=== PATIENT | male | born 1960 | race African-American/Black ===

== ENCOUNTER 2020-10-13 12:47 | Inpatient (IN) ==
[2020-10-13] MEDS ORDERED: ACETAMINOPHEN 500 MG TAB PO STA (13:05)
[2020-10-13] MEDS ORDERED: NITROGLYCERIN 2% OINTMENT 30GM TUBE EXT STA (13:05)
[2020-10-13 13:12] LABS: Basophils # (auto) 0.01 K/uL (0-0.2); Basophils % (auto) 0.2 %; Eosinophils # (auto) 0.43 K/uL (0-0.5); Eosinophils % (auto) 8.3 %; Hematocrit (blood only) 36.4 % (42-52); Hemoglobin 13.2 g/dL (14.0-18.0); Lymphocytes # (auto) 2.13 K/uL (1.2-3.4); Mean Corpuscular Hemoglobin 30.1 pg (25-34); Mean Corpuscular Hgb Conc 36.3 g/dL (32-36); Mean Corpuscular Volume 82.9 fL (80-100); Mean Platelet Volume 10.3 fL (7.4-10.4); Monocytes # (auto) 0.56 K/uL (0.11-0.59); Monocytes % (auto) 10.8 %; Neutrophils # (auto) 2.06 K/uL (1.4-6.5); Neutrophils % (auto) 39.7 %; Platelet Count 229 K/uL (130-400); RDW Coefficient of Variation 13.1 % (11.5-14.5); RDW Standard Deviation 39.4 fL (36.4-46.3); Red Blood Count 4.39 M/uL (4.7-6.1); White Blood Count 5.19 K/uL (4.8-10.8)
--- NOTE | 2020-10-13 13:21 | Emergency Department Note ---
Impression & Plan Precordial chest pain, Elevated troponin, History of coronary artery disease ED Provider Note NAME: NITO [id number] ALIYA AGE: 60 SEX: M : 1960 ARRIVES VIA: Ambulance INFORMANT: [Patient] ED PROVIDER(S): [Leroy Velez MD] CHIEF COMPLAINT: Chest pain HISTORY OF PRESENT ILLNESS: The patient is a 60-year-old male presents to the ER with central chest pain since last night. Last night, he had pain and took some nitroglycerin. The pain went away. This morning around 5 hours ago, the pain returned. He took 2 nitroglycerin. He was given 1 nitroglycerin in route by EMS as well as 4 baby aspirin. He states the pain is now gone. The pain had been an 8/10. Patient was feeling radiation of pain to the left shoulder. He was short of breath, nauseated and sweaty. He states he has a history of coronary disease. There has been no cough or cold or congestion. No trauma. No fever or chills. Patient is an inmate [facility]. REVIEW OF SYSTEMS: See HPI for pertinent positives and negatives. A total of ten systems were reviewed and were otherwise negative. PMHx/PSHx: See Below SOCIAL HISTORY: See Below. PHYSICAL EXAM: GENERAL: Patient is in no acute distress. HEENT: No acute trauma, normocephalic atraumatic, mucous membranes moist, no nasal congestion, no scleral icterus. NECK: No stridor, no adenopathy, no meningismus, trachea is midline. LUNGS: Clear to auscultation bilaterally, no wheeze, no rhonchi, breath sounds equal. Chest: Nontender chest wall. HEART: Without murmurs gallops or rubs, regular rate and rhythm. ABDOMEN: Soft, nontender, bowel sounds positive, no hernias, no peritonitis. EXTREMITIES: No cyanosis or edema, full range of motion of all the joints without pain or difficulty, no signs for acute trauma. NEUROLOGIC: Oriented x 3, no acute motor or sensory deficits, no focal weakness. SKIN: No rash, no jaundice, no diaphoresis. DIFFERENTIAL DIAGNOSIS: Cardiac ischemia, aortic dissection, pulmonary embolism, pneumothorax, pneumonia, pericarditis, myocarditis, esophageal rupture, GERD, cholecystitis, pancreatitis, musculoskeletal, as well as other pathologies. EMERGENCY DEPARTMENT COURSE/PROCEDURES: ECG: Indication was chest pain. The ECG shows a sinus bradycardia with a rate of 41. There is no ST elevation, no PVCs. The QTc is 380. Compared to an ECG from 07 July 2011, the heart rate has decreased. Continuous Cardiac Monitoring: An order was placed for continuous cardiac monitoring. The monitor shows a rate of 54 with sinus bradycardia. MEDICAL DECISION MAKING: There is no leukocytosis or concerning anemia. There is a normal platelet count. No significant electrolyte abnormality or kidney failure. There is no worrisome liver enzyme elevation. Troponin is somewhat elevated at 0.183. No evidence for pancreatitis. ECG does not show any evidence for acute DC. No ischemic changes by EKG. A chest film was performed, there was no mediastinal widening, pneumonia or pneumothorax. On exam, patient denied any chest pain while in the ED, it seems his discomfort has been relieved with nitroglycerin. The patient had already received oral aspirin. He was given Nitropaste, 1 inch. He received oral Tylenol for a headache from his nitroglycerin use. The patient presents with chest discomfort. His chest pain does appear cardiac in nature. He has a history of coronary disease. His symptoms have resolved with nitroglycerin and aspirin. He does have an elevated troponin, hospitalization is warranted. I did speak with cardiology, they recommended the hospital stay, no need for emergent cardiac catheterization. I spoke to the patient and the guards at bedside. I spoke with case management. The on-call hospitalist was consulted. Past Med/Surg History Medical History Angina at rest Bradycardia Constipation HLD (hyperlipidemia) HTN (hypertension) Hydrocele Mood disorder Surgical History (Updated 10/13/20 @ 16:05 by MILTON Watters) H/O removal of cyst Family History (Updated 10/13/20 @ 16:08 by MILTON Watters) Father COPD (chronic obstructive pulmonary disease) Coronary heart disease Mother Coronary heart disease heart attack, pacemkaer Hypertension Diabetes Myocardial infarction Brother Coronary heart disease heart attack, pacemaker Hypertension Kidney disease Dialysis Diabetes Myocardial infarction Social History Smoking Status: Never smoker Second Hand Exposure: No; Do You Dip or Chew Tobacco: No; Tobacco Cessation Education Requested by Patient: No Hx Alcohol Use: No Hx Substance Use: No Communication Ability: Effective Frozen Food Department Manager Required: No Beliefs That Will Affect Care: None Current Living Situation: Other Other Information That Helps Us Care for You: No Feels Safe at Home: Yes Assistive Devices: Denture - Upper, Denture - Lower and Glasses Allergies Allergies Allergy/AdvReac Type Severity Reaction Status Date / Time lisinopril AdvReac Mild Unknown Unverified 10/13/20 14:44 losartan [From Cozaar] AdvReac Mild Unknown Unverified 10/13/20 14:44 Home Meds Home Medications Medication Instructions Recorded Confirmed aspirin [Aspir-81] 81 mg PO QAM 10/13/20 10/13/20 atorvastatin 20 mg PO HS 10/13/20 10/13/20 bisacodyl 10 mg PO HS 10/13/20 10/13/20 celecoxib 100 mg PO BID PRN 10/13/20 10/13/20 chlorthalidone 25 mg PO QAM 10/13/20 10/13/20 docusate sodium 250 mg PO HS 10/13/20 10/13/20 hydralazine 50 mg PO QID 10/13/20 10/13/20 isosorbide mononitrate 60 mg PO QAM 10/13/20 10/13/20 mirtazapine 30 mg PO HS 10/13/20 10/13/20 sertraline 50 mg PO QAM 10/13/20 10/13/20 sertraline 100 mg PO QAM 10/13/20 10/13/20 valsartan 160 mg PO BID 10/13/20 10/13/20 Results & Data (ED) Vital Signs Vital Signs - 24 hr 10/13/20 12:55 10/13/20 12:56 10/13/20 13:00 Temperature 36.8 C Temperature Source Oral Pulse Rate 45 L 46 L 65 Pulse Rate from SpO2 Sensor 46 L 45 L 64 Respiratory Rate 14 16 15 Blood Pressure 166/97 H 170/97 H 170/97 H Blood Pressure Mean 120 121 121 Pulse Oximetry 97 97 96 Oxygen Delivery Method Room Air Sepsis Recent Fever Within 48 Hours No Sepsis New/Unexplained Change in Mental Status No Sepsis Action Taken by Nursing No Action Required 10/13/20 13:01 10/13/20 13:10 10/13/20 13:30 Temperature Temperature Source Pulse Rate 46 L 46 L Pulse Rate from SpO2 Sensor 47 L 43 L Respiratory Rate 15 17 Blood Pressure Blood Pressure Mean Pulse Oximetry 97 98 96 Oxygen Delivery Method Sepsis Recent Fever Within 48 Hours Sepsis New/Unexplained Change in Mental Status Sepsis Action Taken by Nursing 10/13/20 13:31 10/13/20 13:32 10/13/20 14:00 Temperature Temperature Source Pulse Rate 42 L 47 L 43 L Pulse Rate from SpO2 Sensor 48 L 46 L 43 L Respiratory Rate 15 14 16 Blood Pressure 160/86 H Blood Pressure Mean 110 Pulse Oximetry 96 96 96 Oxygen Delivery Method Sepsis Recent Fever Within 48 Hours Sepsis New/Unexplained Change in Mental Status Sepsis Action Taken by Nursing 10/13/20 14:01 10/13/20 14:30 10/13/20 14:31 Temperature Temperature Source Pulse Rate 40 L 55 L 40 L Pulse Rate from SpO2 Sensor 40 L 57 L 40 L Respiratory Rate 15 15 13 Blood Pressure 157/90 H 155/81 H Blood Pressure Mean 112 105 Pulse Oximetry 96 96 96 Oxygen Delivery Method Sepsis Recent Fever Within 48 Hours Sepsis New/Unexplained Change in Mental Status Sepsis Action Taken by Nursing 10/13/20 14:32 10/13/20 15:00 10/13/20 15:01 Temperature Temperature Source Pulse Rate 59 L 44 L 63 Pulse Rate from SpO2 Sensor 58 L 43 L 52 L Respiratory Rate 16 18 19 Blood Pressure 143/79 H Blood Pressure Mean 100 Pulse Oximetry 96 96 95 Oxygen Delivery Method Sepsis Recent Fever Within 48 Hours Sepsis New/Unexplained Change in Mental Status Sepsis Action Taken by [facility] Medications Current Medication List: was personally reviewed by me Laboratory Data Attestation: I reviewed the patient's lab results. Result diagrams: 10/13/20 19:10 10/13/20 13:00 Lab Results 10/13/20 10/13/20 10/13/20 Range/Units 13:00 13:00 13:00 WBC 5.19 (4.8-10.8) K/uL RBC 4.39 L (4.7-6.1) M/uL Hgb 13.2 L (14.0-18.0) g/dL Hct 36.4 L (42-52) % MCV 82.9 (80-100) fL MCH 30.1 (25-34) pg MCHC 36.3 H (32-36) g/dL RDW Std Deviation 39.4 (36.4-46.3) fL RDW Coeff of Yara 13.1 (11.5-14.5) % Plt Count 229 (130-400) K/uL MPV 10.3 (7.4-10.4) fL Immature Gran % (Auto) 0.0 % Neut % (Auto) 39.7 % Lymph % (Auto) 41.0 % Guthrie % (Auto) 10.8 % Eos % (Auto) 8.3 % Baso % (Auto) 0.2 % Neut # (Auto) 2.06 (1.4-6.5) K/uL Lymph # (Auto) 2.13 (1.2-3.4) K/uL Guthrie # (Auto) 0.56 (0.11-0.59) K/uL Eos # (Auto) 0.43 (0-0.5) K/uL Baso # (Auto) 0.01 (0-0.2) K/uL Immature Gran # (Auto) 0.00 (0.00-0.02) K/uL PT 10.6 (9.0-12.0) Seconds INR 1.0 (0.9-1.1) APTT 24.7 (21.0-31.0) Seconds PTT Ratio 0.9 Sodium 141 (136-145) mmol/L Potassium 3.6 (3.5-5.1) mmol/L Chloride 107 (98-107) mmol/L Carbon Dioxide 30 (21-32) mmol/L Anion Gap 4.0 (3-11) BUN 12 (7-18) mg/dl Creatinine 1.26 (0.6-1.4) mg/dl Est Cr Clr Drug Dosing 74.0 ml/min Est GFR ( Amer) 70.9 Est GFR (Non-Af Amer) 61.2 BUN/Creatinine Ratio 9.3 L (10-20) Glucose 76 (70-99) mg/dl Calcium 8.7 (8.5-10.1) mg/dl Magnesium 2.4 (1.8-2.4) mg/dl Total Bilirubin 1.0 (0.2-1) mg/dl AST 20 (15-37) U/L ALT 24 (12-78) U/L Alkaline Phosphatase 71 (45-117) U/L Troponin I 0.183 H* (0-0.045) ng/ml Total Protein 7.0 (6.4-8.2) gm/dl Albumin 3.5 (3.4-5.0) gm/dl Globulin 3.5 (2.5-4.0) gm/dl Albumin/Globulin Ratio 1.0 (0.9-2) Lipase 68 L (73-393) U/L COVID-19 Eval Order SARS-CoV-2, RNA, NAAT (NEGATIVE) 10/13/20 10/13/20 Range/Units 14:45 14:45 WBC (4.8-10.8) K/uL RBC (4.7-6.1) M/uL Hgb (14.0-18.0) g/dL Hct (42-52) % MCV (80-100) fL MCH (25-34) pg MCHC (32-36) g/dL RDW Std Deviation (36.4-46.3) fL RDW Coeff of Yara (11.5-14.5) % Plt Count (130-400) K/uL MPV (7.4-10.4) fL Immature Gran % (Auto) % Neut % (Auto) % Lymph % (Auto) % Guthrie % (Auto) % Eos % (Auto) % Baso % (Auto) % Neut # (Auto) (1.4-6.5) K/uL Lymph # (Auto) (1.2-3.4) K/uL Guthrie # (Auto) (0.11-0.59) K/uL Eos # (Auto) (0-0.5) K/uL Baso # (Auto) (0-0.2) K/uL Immature Gran # (Auto) (0.00-0.02) K/uL PT (9.0-12.0) Seconds INR (0.9-1.1) APTT (21.0-31.0) Seconds PTT Ratio Sodium (136-145) mmol/L Potassium (3.5-5.1) mmol/L Chloride (98-107) mmol/L Carbon Dioxide (21-32) mmol/L Anion Gap (3-11) BUN (7-18) mg/dl Creatinine (0.6-1.4) mg/dl Est Cr Clr Drug Dosing ml/min Est GFR ( Amer) Est GFR (Non-Af Amer) BUN/Creatinine Ratio (10-20) Glucose (70-99) mg/dl Calcium (8.5-10.1) mg/dl Magnesium (1.8-2.4) mg/dl Total Bilirubin (0.2-1) mg/dl AST (15-37) U/L ALT (12-78) U/L Alkaline Phosphatase (45-117) U/L Troponin I (0-0.045) ng/ml Total Protein (6.4-8.2) gm/dl Albumin (3.4-5.0) gm/dl Globulin (2.5-4.0) gm/dl Albumin/Globulin Ratio (0.9-2) Lipase (73-393) U/L COVID-19 Eval Order Covid19 [facility] SARS-CoV-2, RNA, NAAT NEGATIVE (NEGATIVE) Administered Medications Hydralazine HCl (Hydralazine Tab 50 Mg Tab) 50 mg PO QID [facility] Stop: 11/12/20 17:29 Last Admin: 10/13/20 17:59 Dose: 50 mg Documented by: [id number] Heparin Sodium/Dextrose (Heparin Sodium/Dextrose) 25,000 units in 500 mls @ 31 mls/hr IV .[id number] [facility]; Protocol Stop: 11/12/20 15:14 Last Admin: 10/13/20 15:49 Dose: 1,550 units/hr, 31 mls/hr Documented by: [id number] Cosigned by: [id number] Discontinued Medications Acetaminophen (Acetaminophen 500 Mg Tab) 1,000 mg PO NOW STA Stop: 10/13/20 13:06 Last Admin: 10/13/20 13:19 Dose: 1,000 mg Documented by: [id number] Heparin Sodium (Porcine) (Heparin Sod (Porcine) 1000 Unit/Ml 10 Ml Vial) Confirm Administered Dose 10,000 units .ROUTE .STK-MED ONE Stop: 10/13/20 15:35 Last Admin: 10/13/20 15:48 Dose: 7,000 units Documented by: [id number] Cosigned by: [id number] Heparin Sodium/Dextrose (Heparin Iv Standard With Bolus) 1 ea IV NOW STA; P rotocol Stop: 10/13/20 15:04 Last Admin: 10/13/20 15:51 Dose: Not Given Documented by: [id number] Nitroglycerin (Nitroglycerin 2% Ointment 30gm Tube) 1 inch EXT NOW STA Stop: 10/13/20 13:06 Last Admin: 10/13/20 13:19 Dose: 1 inch Documented by: [id number] Imaging Data Radiologist's Impression: SINGLE VIEW CHEST CLINICAL HISTORY: Atypical chest pain. FINDINGS: 2 AP, portable, upright chest radiographs are compared to study dated 07/06/2011. The examination is degraded by portable technique and patient rotatio n. The heart is enlarged noting atherosclerotic calcification of the thoracic aorta. The pulmonary vasculature is noncongested. There is mild bibasilar scarring/atelectasis. The lungs and pleural spaces are otherwise clear. No pneumothorax is seen. The skeletal structures are osteopenic. The bony thorax is grossly intact. IMPRESSION: Cardiomegaly with no acute cardiopulmonary abnormality. Discharge Plan Visit Data Chief Complaint: Chest Pain ED Provider: Leroy Velez Discharge Problem: Precordial chest pain, Elevated troponin, History of coronary artery disease Patient Disposition: Admitted As Inpatient Condition: Fair Discharge Instructions Interventions: ED Discharge Assessment Last Done: 10/13/20 16:09
--- NOTE | 2020-10-13 13:24 | XRay Report ---
SINGLE VIEW CHEST CLINICAL HISTORY: Atypical chest pain. FINDINGS: 2 AP, portable, upright chest radiographs are compared to study dated 07/06/2011. The examin ation is degraded by portable technique and patient rotation. The heart is enlarged noting atheroscle rotic calcification of the thoracic aorta. The pulmonary vasculature is noncongested. There is mild b ibasilar scarring/atelectasis. The lungs and pleural spaces are otherwise clear. No pneumothorax is s een. The skeletal structures are osteopenic. The bony thorax is grossly intact. IMPRESSION: Cardiomegaly with no acute cardiopulmonary abnormality. ACT 112: Negative or not required by law. Electronically signed by: Leroy Oliveros M.D. 10/13/2020 1:23 PM
[2020-10-13 13:28] LABS: Albumin Level 3.5 gm/dl (3.4-5.0); BUN Creatinine Ratio 9.3 (10-20); Calcium 8.7 mg/dl (8.5-10.1); Est GFR (African American) 70.9; Est GFR (Non-African American) 61.2; Magnesium 2.4 mg/dl (1.8-2.4); Potassium 3.6 mmol/L (3.5-5.1)
[2020-10-13 13:40] LABS: Globulin 3.5 gm/dl (2.5-4.0); Troponin I 0.183 ng/ml (0-0.045)
[2020-10-13] MEDS ORDERED: Heparin IV Adult Wt-Based Standard WITH Bolus Protocol IV STA (15:03)
[2020-10-13] MEDS ORDERED: HEPARIN SODIUM/DEXTROSE 25,000 UNITS/500 ML BAG IV SCH (15:15)
[2020-10-13] MEDS ORDERED: HEPARIN SOD (PORCINE) 1000 UNIT/ML ONE (15:34)
[2020-10-13 15:46] LABS: Partial Thromboplastin Ratio 0.9; Partial Thromboplastin Time 24.7 Seconds (21.0-31.0); Prothrombin Time 10.6 Seconds (9.0-12.0)
--- NOTE | 2020-10-13 15:58 | History & Physical Report ---
Date of Service October 13, 2020 Assessment & Plan (1) Angina at rest: male with risk factors of obesity, HTN, HLD, never smoked - Currently pain free- NTG tabs prn chest pain, with ECG - ASA added - Heparin drip started with bolus - BB on hold secondary to bradycardia - ECHO evaluate for any wall motion abnormalities and cardiac function - Trend troponin and ECG- treadmill if not going to chemical lab technician - Atorvastatin 20 (moderate intensity) increase to high intensity pending lipids and A1C - Recommend discontinue Celecoxib in this patient -will keep NPO after midnight in case of need for urgent cath tomorrow if worsens or has recurrent CP (2) HTN (hypertension): First time evaluating patient but goal would be less <130 - recommend dose adjustments if needed through hospitalization and discharge - Continue Isosorbide, Valasartan, hydralazine, chlorthalidone - BB if HR increases and can tolerate (3) Bradycardia: Monitor while in house, is asymptomatic at this time, continue ischemia evaluation - HR variable 40-60s, no ectopy or change in MS interval or P waves (4) HLD (hyperlipidemia): As above (5) Mood disorder: Calm and cooperative - Continue current plan - Sertraline 150 mg per day - Mirtazapine 30 mg qhs (6) Constipation: No acute issue - continue docusate - Mirilax PRN (7) DVT prophylaxis: SCDs Therapuetic heparin History of Present Illness Primary Care Provider: 60 YOM prisoner at [facility]. The patient comes to the emergency room today for complaints of chest pain. The patient states that 3 days ago he was standing in his cell at the door and got squeezing sharp pain in the center of his chest that knocked him back onto his chair. This pain was associated with nausea, shortness of breath, diaphoresis, and radiated to his left shoulder. The pain was relieved after taking his nitroglycerin. The patient had the same pain this morning and took 2 more of his nitroglycerine tabs and went to the [facility] where EMS was called, where he got another nitroglycerin and 4 baby aspirin. The patient is pain free at this time of evaluation. In the emergency room the patient was noted to have a troponin of 0.183 and sinus kay on his ECG with no acute infarction. Cardiology was consulted, recommended starting heparin drip and admission. Patient will be admitted to telemetry, ECHO, trend troponin and ECGs. The patient has a history of hypertension, HLD, constipation, and mood disorder, he has never seen a dipper operator and was given nitroglycerine at the group home for chest pain about 4 months ago. The patient states that "he has chest pain everyday and takes a nitroglycerine tablet everyday". However, that pain is located under his left pectoral and goes to his armpit and this is reproducible. The patient also notes that about 3x per week that his feet and ankles become so swollen that he can not take his boots off and this can occur with either sitting or standing for a while. No other evidence of failure or hemodynamic compromise on exam. Allergies Allergy/AdvReac Type Severity Reaction Status Date / Time lisinopril AdvReac Mild Unknown Unverified 10/13/20 14:44 losartan [From Cozaar] AdvReac Mild Unknown Unverified 10/13/20 14:44 Home Medications Medication Instructions Recorded Confirmed Type aspirin [Aspir-81] 81 mg PO QAM 10/13/20 10/13/20 History atorvastatin 20 mg PO HS 10/13/20 10/13/20 History bisacodyl 10 mg PO HS 10/13/20 10/13/20 History celecoxib 100 mg PO BID PRN 10/13/20 10/13/20 History chlorthalidone 25 mg PO QAM 10/13/20 10/13/20 History docusate sodium 250 mg PO HS 10/13/20 10/13/20 History hydralazine 50 mg PO QID 10/13/20 10/13/20 History isosorbide mononitrate 60 mg PO QAM 10/13/20 10/13/20 History mirtazapine 30 mg PO HS 10/13/20 10/13/20 History sertraline 50 mg PO QAM 10/13/20 10/13/20 History sertraline 100 mg PO QAM 10/13/20 10/13/20 History valsartan 160 mg PO BID 10/13/20 10/13/20 History Past Med/Surg History Medical History Angina at rest Bradycardia Constipation HLD (hyperlipidemia) HTN (hypertension) Hydrocele Mood disorder Surgical History (Updated 10/13/20 @ 16:05 by MILTON Watters) H/O removal of cyst Family History (Updated 10/13/20 @ 16:08 by MILTON Watters) Father COPD (chronic obstructive pulmonary disease) Coronary heart disease Mother Coronary heart disease heart attack, pacemkaer Hypertension Diabetes Myocardial infarction Brother Coronary heart disease heart attack, pacemaker Hypertension Kidney disease Dialysis Diabetes Myocardial infarction Social History Smoking Status: Never smoker Second Hand Exposure: No; Do You Dip or Chew Tobacco: No; Tobacco Cessation Education Requested by Patient: No Hx Alcohol Use: No Hx Substance Use: No Communication Ability: Effective Carpenter 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 Required: No Beliefs That Will Affect Care: None Current Living Situation: Other Other Information That Helps Us Care for You: No Feels Safe at Home: Yes Assistive Devices: Denture - Upper, Denture - Lower and Glasses Review of Systems Review of Systems: REVIEW OF SYSTEMS: Constitutional: No fever, sweats or chills Eyes: No diplopia, no worsening or blurred vision ENT: normal hearing, no trouble swallowing Respiratory: No cough, sputum, dyspnea at rest or on exertion Cardiovascular: (+) chest pain, tightness lower, extremity edema, (-) palpitations Abdomen: (+) constipation, No pain, nausea, vomiting, diarrhea or Musculoskeletal: (+) rib/lateral chest pain, No joint pain, calf pain, Neurologic: No weakness, numbness/tingling, or balance problems Psychiatric:(+) anxiety, depression, mood instability history Skin: No rash or itch Physical Exam Physical Exam: PHYSICAL EXAM: General: awake, alert, no apparent distress Head: Normocephalic, atraumatic ENT: PERRL, EOMI, no pharyngeal exudate, mucous membranes moist Neuro: AAO x 3, speech clear and appropriate, strength intact bilaterally 5/5, sensation intact and equal all extremities and dermatomes, no pronator drift Chest: equal rise and fall of the chest, no accessory muscle use, no heaves or thrills, Clear to auscultation, on room air, Cardiac: Regular rate and rhythm, telemetry reviewed, skin warm dry, cap refill <3 seconds, peripheral pulses +2 no JVD, no murmur, no JVD, no edema GI: NABS x 4 quadrants, soft, nontender to palpation, no rebound, guarding or tenderness : Spontaneously voiding, no pain, no CVA tenderness, Extremities: Normal inspection, no peripheral edema or erythema, calfs nontender to palpation Psych: Normal mood and affect Skin: no rash or erythema, old scar to shoulder, back, and clavicle Results & Data Results & Data ([facility]) Vital Signs (Past 12 Hours) Vital Signs Temp Pulse Resp BP Pulse Ox 10/13/20 15:01 63 19 143/79 H 95 10/13/20 15:00 44 L 18 96 10/13/20 14:32 59 L 16 96 10/13/20 14:31 40 L 13 155/81 H 96 10/13/20 14:30 55 L 15 96 10/13/20 14:01 40 L 15 157/90 H 96 10/13/20 14:00 43 L 16 96 10/13/20 13:32 47 L 14 96 10/13/20 13:31 42 L 15 160/86 H 96 10/13/20 13:30 46 L 17 96 10/13/20 13:10 98 10/13/20 13:01 46 L 15 97 10/13/20 13:00 65 15 170/97 H 96 10/13/20 12:56 36.8 C 46 L 16 170/97 H 97 10/13/20 12:55 45 L 14 166/97 H 97 Laboratory Results Abnormal lab results 10/13/20 10/13/20 Range/Units 13:00 13:00 RBC 4.39 L (4.7-6.1) M/uL Hgb 13.2 L (14.0-18.0) g/dL Hct 36.4 L (42-52) % MCHC 36.3 H (32-36) g/dL BUN/Creatinine Ratio 9.3 L (10-20) Troponin I 0.183 H* (0-0.045) ng/ml Lipase 68 L (73-393) U/L Medications Administered Heparin Sodium/Dextrose (Heparin Sodium/Dextrose) 25,000 units in 500 mls @ 31 mls/hr IV .[id number] [facility]; Protocol Stop: 11/12/20 15:14 Last Admin: 10/13/20 15:49 Dose: 1,550 units/hr, 31 mls/hr Documented by: [id number] Cosigned by: [id number] Discontinued Medications Acetaminophen (Acetaminophen 500 Mg Tab) 1,000 mg PO NOW STA Stop: 10/13/20 13:06 Last Admin: 10/13/20 13:19 Dose: 1,000 mg Documented by: [id number] Heparin Sodium (Porcine) (Heparin Sod (Porcine) 1000 Unit/Ml 10 Ml Vial) Confirm Administered Dose 10,000 units .ROUTE .STK-MED ONE Stop: 10/13/20 15:35 Last Admin: 10/13/20 15:48 Dose: 7,000 units Documented by: [id number] Cosigned by: [id number] Heparin Sodium/Dextrose (Heparin Iv Standard With Bolus) 1 ea IV NOW STA; Protocol Stop: 10/13/20 15:04 Last Admin: 10/13/20 15:51 Dose: Not Given Documented by: [id number] Nitroglycerin (Nitroglycerin 2% Ointment 30gm Tube) 1 inch EXT NOW STA Stop: 10/13/20 13:06 Last Admin: 10/13/20 13:19 Dose: 1 inch Documented by: [id number] ECG Additional Comments: Marked sinus bradycardia Abnormal ECG Code Status & VTE Plan Code Status FULL CODE VTE: SCD's, Heparin drip VTE Prophylaxis Plan VTE Prophylaxis will be ordered: Yes Supervising Physician Co-Signing Physician Notes SAND MILL GRINDER Supervision note: I have personally seen and examined the patient and discussed and verified the baldwin points of the history and physical along with the plan with MILTON Roldan with the following exceptions and/or additions: This patient is a 60-year-old male prisoner with a history of hypertension, hyperlipidemia, and mood disorder who presents to the ER with chest pain that occurred twice last 24 hours of substernal, radiating to the shoulder and associated with nausea and shortness of breath as well as some lightheadedness that was relieved with nitroglycerin. As noted above, he has had other episodes of daily left-sided pinching chest pain but also he was given nitroglycerin for but did not know if that really helped. This was completely different. Troponin was positive in the ER. He was bradycardic without any ischemic changes. Chest x-ray showed cardiomegaly but no pulmonary edema. He is hypertensive. History and ROS reviewed as above Vitals reviewed Gen: AAOx3, NAD HEENT: Anicteric sclerae, EOMI CV: RRR no mgr nl S1S2 Pulm: CTAB no wcr Abd: +BS soft NT ND no masses or hernias Ext: No edema, 2+ DP pulses Skin: No rashes, warm/dry Neuro: Full strength throughout Laboratory values reviewed, chest x-ray image personally reviewed by me, ECG reviewed 60-year-old male with history noted as above, here with unstable angina with elevated troponin. Heparin drip, aspirin, statin, and BP control as above Cannot tolerate beta-martha due to bradycardia Monitor on telemetry Echocardiogram ordered Cardiology consultation placed and will likely need cardiac catheterization on Friday or sooner if has recurrence of chest pain. Trend troponins PG Care Time/CCT Total # of Minutes Spent Total Time Spent with Patient: Total time spent is greater than 50% in coordination of care (as documented) at patient's floor/unit and/or counseling patient: Coding Level of Care Code 43529 Initial Inpt Care Lvl 3 Diagnoses Angina at rest I20.8 HTN (hypertension) I10 Hypertension type: essential hypertension Bradycardia R00.1 HLD (hyperlipidemia) E78.5 Hyperlipidemia type: unspecified Mood disorder F39 Constipation K59.00 Constipation type: unspecified constipation type DVT prophylaxis Z29.9 (1) HLD (hyperlipidemia) Hyperlipidemia type: unspecified Qualified Code(s): E78.5 - Hyperlipidemia, unspecified (2) HTN (hypertension) Hypertension type: essential hypertension Qualified Code(s): I10 - Essential (primary) hypertension (3) Constipation Constipation type: unspecified constipation type Qualified Code(s): K59.00 - Constipation, unspecified
[2020-10-13] MEDS ORDERED: POLYETHYLENE (MIRALAX) 17 GM PACK PO PRN (17:04)
[2020-10-13] MEDS: hydrALAZINE TAB 50 MG TAB PO SCH ×2 (17:59→20:43)
[2020-10-13 19:32] LABS: Hematocrit (blood only) 37.6 % (42-52); Hemoglobin 13.2 g/dL (14.0-18.0); Mean Corpuscular Hemoglobin 29.3 pg (25-34); Mean Corpuscular Hgb Conc 35.1 g/dL (32-36); Mean Corpuscular Volume 83.6 fL (80-100); Platelet Count 241 K/uL (130-400); RDW Coefficient of Variation 13.1 % (11.5-14.5); White Blood Count 7.91 K/uL (4.8-10.8)
[2020-10-13 19:59] LABS: Partial Thromboplastin Ratio > 5.3
[2020-10-13 20:24] LABS: Partial Thromboplastin Time > 139.0 Seconds (21.0-31.0)
[2020-10-13] MEDS: MIRTAZAPINE TAB 15 MG TAB PO SCH (20:43)
[2020-10-13] MEDS: VALSARTAN 80 MG TAB PO SCH (20:43)
[2020-10-13] MEDS: bisacodyL 5 MG TABEC PO SCH (20:44)
[2020-10-13] MEDS: DOCUSATE SODIUM 100 MG CAP PO SCH (20:44)
[2020-10-13] MEDS ORDERED: ATORVASTATIN 20 MG TAB PO SCH (21:00)
--- NOTE | 2020-10-13 21:16 | Electrocardiogram Report ---
Test Reason : Blood Pressure : / mmHG Vent. Rate : 043 BPM Atrial Rate : 043 BPM P-R Int : 204 ms QRS Dur : 108 ms QT Int : 450 ms P-R-T Axes : 038 -25 -17 degrees QTc Int : 380 ms Marked sinus bradycardia Abnormal ECG When compared with ECG of 07-JUL-2011 06:32, QT has shortened Confirmed by Phillip Mackay ([id number]) on 10/13/2020 9:15:43 PM Referred By: [facility] SCI Confirmed By:Phillip Mackay
[2020-10-13] MEDS: NITROGLYCERIN 2% OINTMENT 30GM TUBE EXT SCH (22:15)
[2020-10-13 22:44] LABS: Partial Thromboplastin Ratio 2.1
[2020-10-13 23:05] LABS: Partial Thromboplastin Time 55.9 Seconds (21.0-31.0)
[2020-10-14] MEDS ORDERED: Nursing to Pharmacy Communication SCH (01:15)
[2020-10-14] MEDS: LIDOCAINE 5% 1 PATCH TD SCH (01:23)
[2020-10-14] MEDS: NITROGLYCERIN 2% OINTMENT 30GM TUBE EXT SCH ×2 (05:45→22:08)
[2020-10-14 05:52] LABS: Basophils # (auto) 0.02 K/uL (0-0.2); Basophils % (auto) 0.3 %; Eosinophils # (auto) 0.48 K/uL (0-0.5); Eosinophils % (auto) 7.1 %; Hematocrit (blood only) 38.4 % (42-52); Hemoglobin 13.2 g/dL (14.0-18.0); Immature Granulocytes # (auto) 0.01 K/uL (0.00-0.02); Immature Granulocytes % (auto) 0.1 %; Lymphocytes # (auto) 1.88 K/uL (1.2-3.4); Mean Corpuscular Hgb Conc 34.4 g/dL (32-36); Mean Corpuscular Volume 84.4 fL (80-100); Monocytes # (auto) 0.63 K/uL (0.11-0.59); Monocytes % (auto) 9.4 %; Neutrophils % (auto) 55.1 %; Platelet Count 249 K/uL (130-400); RDW Coefficient of Variation 13.3 % (11.5-14.5); Red Blood Count 4.55 M/uL (4.7-6.1); White Blood Count 6.72 K/uL (4.8-10.8)
[2020-10-14 06:01] LABS: Prothrombin Time 10.5 Seconds (9.0-12.0)
[2020-10-14 06:02] LABS: Partial Thromboplastin Ratio 1.6; Partial Thromboplastin Time 42.2 Seconds (21.0-31.0)
[2020-10-14 06:16] LABS: BUN Creatinine Ratio 10.8 (10-20); Blood Urea Nitrogen 13 mg/dl (7-18); Calcium 8.1 mg/dl (8.5-10.1); Carbon Dioxide 28 mmol/L (21-32); Chloride 109 mmol/L (98-107); Creatinine Clr Calc Pharmacy 80.3 ml/min; Est GFR (African American) 78.3; Est GFR (Non-African American) 67.6; Glucose 120 mg/dl (70-99); Magnesium 2.4 mg/dl (1.8-2.4); Potassium 3.8 mmol/L (3.5-5.1); Sodium 141 mmol/L (136-145)
[2020-10-14 06:19] LABS: C Reactive Protein < 0.29 mg/dl (0-0.29); Chol HDL Ratio 5; Cholesterol 170 mg/dl (0-200); HDL Cholesterol 38 mg/dl; LDL Cholesterol Calculated 111 mg/dl; Triglycerides 105 mg/dl (0-150); VLDL Cholesterol 21 mg/dl
[2020-10-14 06:21] LABS: Estimated Average Glucose 114 mg/dl; Hemoglobin A1C 5.6 % (4.5-5.6)
[2020-10-14] MEDS: VALSARTAN 80 MG TAB PO SCH ×2 (07:52→20:58)
[2020-10-14] MEDS: ASPIRIN 81 MG ECTAB PO SCH (07:53)
[2020-10-14] MEDS: ISOSORBIDE MONO EXTENDED REL 60 MG TABCR PO SCH (07:53)
[2020-10-14] MEDS: hydrALAZINE TAB 50 MG TAB PO SCH ×4 (07:53→20:58)
[2020-10-14] MEDS ORDERED: CHLORTHALIDONE 25 MG TAB PO SCH (09:00)
[2020-10-14] MEDS: SERTRALINE HCL 100 MG TABLET PO SCH (09:25)
[2020-10-14] MEDS: SERTRALINE HCL 50 MG TABLET PO SCH (09:25)
--- NOTE | 2020-10-14 11:12 | XCELERA ---
[id number]
--- NOTE | 2020-10-14 11:28 | Cardiology Consultation ---
Date of Consultation October 14, 2020 Assessment & Plan (1) Precordial chest pain: -the patient experienced 2 episodes concerning for angina pectoris. -troponin I level mildly elevated and peaked at 0.776. -no acute EKG changes. -echocardiogram notes normal left ventricular systolic function without wall motion abnormality. -agree with heparin drip. -not on a beta-martha due to bradycardia and episode of complete heart block. -will proceed with a cardiac catheterization on Friday morning. (2) Bradycardia: -significant sinus bradycardia noted on the admission EKG and monitor. -demonstrate 2 brief episodes of complete heart block this morning. -agree with avoiding beta blockade. (3) HTN (hypertension): -borderline control on current regimen. (4) HLD (hyperlipidemia): -would increase atorvastatin to at least 40 mg q.h.s.. History of Present Illness Attending Physician: Portillo Hernandez MD History of Present Illness Mr. Huffman is a 60-year-old male admitted yesterday with a chest pain syndrome and elevated troponin I levels. This consultation was ordered to assist in his cardiac management. Of note, the patient has not seen a taproom attendant previously. The patient was in his usual state of health until approximately 3 days prior to presentation. Just after getting out of bed, the patient noticed the abrupt onset of a squeezing and sharp discomfort in his substernal region. This discomfort radiated to his left shoulder and was accompanied by shortness of breath, nausea, and diaphoresis. The patient's discomfort lasted for approximately 5-10 minutes and resolved with use of a sublingual nitroglycerin tablet. The patient had a recurrent episode of his discomfort on the day of presentation. His symptoms were exactly as described above, however, his discomfort lasted for 20-30 minutes. Discomfort resolved after 3 sublingual nitroglycerin tablets and 4 chewable aspirin tablets. The patient has never known of a cardiac event. He has never had a cardiac catheterization. The patient has never experienced an episode of syncope or presyncope. He further denies PND, orthopnea, palpitations, lower extremity edema, and claudication. Currently, patient is resting comfortably in bed without complaints. Past medical and surgical history 1. Hypertension 2. Mild LVH 3. Mild mitral regurgitation 4. Hypercholesterolemia 5. Obesity 6. History of hydrocele 7. Mood disorder 8. DJD Social history Inmate at [facility] No tobacco or alcohol Family history Mother had an [place] at age 70 Father in his 60s from cirrhosis Review of systems A 10 point review systems undertaken negative except for that described above. Allergies Allergy/AdvReac Type Severity Reaction Status Date / Time lisinopril AdvReac Mild Unknown Unverified 10/13/20 14:44 losartan [From Cozaar] AdvReac Mild Unknown Unverified 10/13/20 14:44 Home Medications Medication Instructions Recorded Confirmed Type aspirin [Aspir-81] 81 mg PO QAM 10/13/20 10/13/20 History atorvastatin 20 mg PO HS 10/13/20 10/13/20 History bisacodyl 10 mg PO HS 10/13/20 10/13/20 History celecoxib 100 mg PO BID PRN 10/13/20 10/13/20 History chlorthalidone 25 mg PO QAM 10/13/20 10/13/20 History docusate sodium 250 mg PO HS 10/13/20 10/13/20 History hydralazine 50 mg PO QID 10/13/20 10/13/20 History isosorbide mononitrate 60 mg PO QAM 10/13/20 10/13/20 History mirtazapine 30 mg PO HS 10/13/20 10/13/20 History sertraline 50 mg PO QAM 10/13/20 10/13/20 History sertraline 100 mg PO QAM 10/13/20 10/13/20 History valsartan 160 mg PO BID 10/13/20 10/13/20 History Patient History Medical History Angina at rest Bradycardia Constipation HLD (hyperlipidemia) HTN (hypertension) Hydrocele Mood disorder Surgical History (Updated 10/13/20 @ 16:05 by MILTON Watters) H/O removal of cyst Family History (Updated 10/13/20 @ 16:08 by MILTON Watters) Father COPD (chronic obstructive pulmonary disease) Coronary heart disease Mother Coronary heart disease heart attack, pacemkaer Hypertension Diabetes Myocardial infarction Brother Coronary heart disease heart attack, pacemaker Hypertension Kidney disease Dialysis Diabetes Myocardial infarction Social History Smoking Status: Never smoker Second Hand Exposure: No; Do You Dip or Chew Tobacco: No; Tobacco Cessation Education Requested by Patient: No Hx Alcohol Use: No Hx Substance Use: No Communication Ability: Effective Restaurant Cook Required: No Beliefs That Will Affect Care: None Current Living Situation: Other Other Information That Helps Us Care for You: No Feels Safe at Home: Yes Assistive Devices: Glasses Physical Exam Physical Exam: In general is an obese black male seated at the bedside without complaints. HEENT exam is negative. Neck is supple with full carotid upstrokes. No carotid bruits. Jugular venous pressure is flat at 90. There is no thyromegaly. Cardiovascular exam reveals a regular rhythm with a normal S1-S2. Heart sounds are distant. No obvious murmurs. Lungs are clear without rales, rhonchi or wheezes. Abdomen is obese without bruits. Extremities reveal intact radial artery pulses bilaterally. There is trace pretibial edema. Results & Data ([facility]) Vital Signs (Past 12 Hours) Vital Signs Temp Pulse Pulse Resp BP Pulse Ox 10/14/20 08:50 56 L 10/14/20 07:51 37.0 C 48 L 18 166/84 H 96 10/14/20 03:32 36.9 C 55 L 17 151/68 H 94 10/13/20 23:53 36.4 C L 64 17 170/78 H 94 Laboratory Results CBC notes hemoglobin 13.2, crit 30.4, white count 6.7, platelet count [id number]. Electrolytes note a sodium of 141, potassium 3.8, chloride 109, bicarb 20, BUN 13, creatinine 1.16, and glucose of 120. Initial troponin was elevated 0.183 with follow-up values of 0.62, 0.776, and 0.644. LDL cholesterol is 111 with an HDL of 38. Diagnostic Findings EKG notes sinus bradycardia with nonspecific T-wave abnormality. soccer referee this morning noted to very brief episodes of complete heart block. Echocardiogram notes normal left ventricular systolic function with ejection fraction of 60-65%. There are no wall motion abnormalities. There is mild LVH and evidence of mild mitral regurgitation. PG Care Time/CCT Total # of Minutes Spent Total Time Spent with Patient: Total time spent is greater than 50% in coordination of care (as documented) at patient's floor/unit and/or counseling patient: Coding Level of Care Code 58019 Inpt Consult Level 5 Diagnoses Precordial chest pain R07.2 Bradycardia R00.1 HTN (hypertension) I10 Hypertension type: essential hypertension HLD (hyperlipidemia) E78.5 Hyperlipidemia type: unspecified (1) HTN (hypertension) Hypertension type: essential hypertension Qualified Code(s): I10 - Essential (primary) hypertension (2) HLD (hyperlipidemia) Hyperlipidemia type: unspecified Qualified Code(s): E78.5 - Hyperlipidemia, unspecified
--- NOTE | 2020-10-14 12:11 | Electrocardiogram Report ---
Test Reason : Blood Pressure : / mmHG Vent. Rate : 059 BPM Atrial Rate : 059 BPM P-R Int : 200 ms QRS Dur : 122 ms QT Int : 406 ms P-R-T Axes : 028 -30 099 degrees QTc Int : 401 ms Sinus bradycardia Left axis deviation Nonspecific ST and T wave abnormality Abnormal ECG When compared with ECG of 13-OCT-2020 19:29, (unconfirmed) Non-specific change in ST segment in Inferior leads ST now depressed in Lateral leads Nonspecific T wave abnormality now evident in Lateral leads Confirmed by Gustavo Hardy ([id number]) on 10/14/2020 12:10:35 PM Referred By: [facility] Confirmed By:Gustavo Hardy
--- NOTE | 2020-10-14 12:16 | Electrocardiogram Report ---
Test Reason : Blood Pressure : / mmHG Vent. Rate : 060 BPM Atrial Rate : 060 BPM P-R Int : 200 ms QRS Dur : 110 ms QT Int : 412 ms P-R-T Axes : 029 -35 028 degrees QTc Int : 412 ms Normal sinus rhythm Left axis deviation Abnormal ECG When compared with ECG of 14-OCT-2020 00:17, (unconfirmed) Nonspecific T wave abnormality, improved in Lateral leads Confirmed by Gustavo Hardy ([id number]) on 10/14/2020 12:15:40 PM Referred By: Belem SCI Confirmed By:Gustavo Hardy
[2020-10-14] MEDS: ONDANSETRON INJ 2 MG/ML 2 ML VIAL IV PRN ×2 (12:18→20:29)
--- NOTE | 2020-10-14 13:27 | Hospitalist Progress Note ---
Date of Service October 14, 2020 Assessment & Plan (1) Angina at rest: Risk factors of obesity, HTN, HLD. - Continue ASA, heparin gtt - Continue statin 40 mg PO QHS - Hold beta-martha for bradycardia and transient 3rd degree AV block - Cardiology consulted - Plan for cath on Friday; consider EP eval and possible pacemaker. - TTE on 10/14 showed EF 60-65%, mild concentric LVH. - NPO @ midnight on Friday (2) Bradycardia: Generally in sinus bradycardia, but had a ~10 second episode of 3rd degree AV block at 9:34am on 10/14. - Hold any AV blocking agents - Plan for EP evaluation on Friday (3) HTN (hypertension): BP presently 130/70. - Continue Imdur, valsartan, & hydralazine - Hold chlorthalidone for pending cath (4) HLD (hyperlipidemia): As above (5) Mood disorder: Calm and cooperative during my interview. - Continue home sertraline & mirtazapine (6) DVT prophylaxis: Heparin gtt for unstable angina. Admission and Anticipated Discharge Date Admission Date: October 13, 2020 Subjective Another episode of chest pain overnight, but nothing since then. He did have an episode of bradycardia with heart block that caused some nausea. It was only about 10 seconds long, then returned to normal. Reports no fevers/chills, chest pain, shortness of breath, abdominal pain, nausea, or vomiting. Physical Exam Constitutional: WD/WN, vitals as above Eyes: EOM intact bilaterally; no conjunctival abnormality ENMT: external ear and nose normal, oropharynx normal Neck: trachea midline, no thyromegaly normal visual inspection Respiratory: normal respiratory effort, lungs clear to auscultation no respiratory distress Cardiovascular: Rate/Rhythm: regular rate and + bradycardic Heart Sounds: normal S1 and normal S2 Vessels: no JVD Extremities: no edema Gastrointestinal (Abdomen): Inspection/Auscultation: abdomen normal to inspection; abdomen not distended Musculoskeletal: no cyanosis or clubbing, extremities motor strength 5/5 Skin: no rashes, warm and dry Neurologic: moves all extremities and awake Psychiatric: Orientation: alert, oriented to person and cooperative Results & Data Results & Data ([facility]) Vital Signs (Past 12 Hours) Vital Signs Temp Pulse Pulse Resp BP Pulse Ox 10/14/20 11:57 36.7 C 53 L 17 128/72 94 10/14/20 08:50 56 L 10/14/20 07:51 37.0 C 48 L 18 166/84 H 96 10/14/20 03:32 36.9 C 55 L 17 151/68 H 94 PG Care Time/CCT Total # of Minutes Spent Total Time Spent with Patient: Total time spent is greater than 50% in coordination of care (as documented) at patient's floor/unit and/or counseling patient: Coding Level of Care Code 75941 Subseq Hosp Care Lvl 3 Diagnoses Angina at rest I20.8 Bradycardia R00.1 HTN (hypertension) I10 Hypertension type: essential hypertension HLD (hyperlipidemia) E78.5 Hyperlipidemia type: unspecified Mood disorder F39 DVT prophylaxis Z29.9 (1) HTN (hypertension) Hypertension type: essential hypertension Qualified Code(s): I10 - Essential (primary) hypertension (2) HLD (hyperlipidemia) Hyperlipidemia type: unspecified Qualified Code(s): E78.5 - Hyperlipidemia, unspecified
[2020-10-14] MEDS ORDERED: Heparin IV Adult Wt-Based Standard *NO* Bolus Protocol IV SCH (13:46)
[2020-10-14] MEDS: HEPARIN SODIUM/DEXTROSE 25,000 UNITS/500 ML BAG IV SCH (14:40)
[2020-10-14] MEDS: NITROGLYCERIN SL 0.4 MG/TAB TAB SL PRN ×4 (15:32→20:26)
[2020-10-14] MEDS ORDERED: MoRPHine SULFATE 4 MG/ML 1 ML CARP\\VIAL IV PRN ×2 (20:55→21:46)
[2020-10-14] MEDS: DOCUSATE SODIUM 100 MG CAP PO SCH (20:58)
[2020-10-14] MEDS: bisacodyL 5 MG TABEC PO SCH (20:58)
[2020-10-14] MEDS ORDERED: MoRPHine SULFATE 2 MG/ML CARP ONE (20:59)
[2020-10-14] MEDS ORDERED: ATORVASTATIN 40 MG TAB PO SCH (21:00)
[2020-10-14] MEDS: MIRTAZAPINE TAB 15 MG TAB PO SCH (21:08)
[2020-10-14] MEDS ORDERED: OPTIRAY 320 125ml IV ONE (21:21)
--- NOTE | 2020-10-14 21:30 | XRay Report ---
KUB HISTORY: Acute nausea and vomiting nausea and vomiting COMPARISON: CT abdomen and pelvis of same day. FINDINGS: Nonobstructive bowel gas pattern. No renal calculi. No ureteral calculi. No pneumoperitone um or pneumatosis. Degenerative changes of the spine, pelvis and hips. No fracture. IMPRESSION: Nonobstructive bowel gas pattern. ACT 112: Negative or not required by law. The above report was generated using voice recognition software. It may contain grammatical, syntax o r spelling errors. Electronically signed by: Jorje Ludwig M.D. 10/14/2020 9:28 PM
[2020-10-14] MEDS: FAMOTIDINE 20 MG in SYRINGE 3 ML IV SCH (21:35)
--- NOTE | 2020-10-14 21:44 | CT Scan Report ---
CT angio abdomen pelvis w con CLINICAL HISTORY: 60 years-old Male with abdominal pain, nausea and vomiting acute generalized abd ominal pain with nausea and vomiting COMPARISON STUDY: KUB of same day TECHNIQUE: Following the IV administration of 119 mL of Optiray 320, CT angiogram of the abdomen and pelvis was performed from the lung bases the proximal femora. Images are reviewed in the axial, sagit boza, and coronal planes. 3-D MIPS images are created and assessed. All measurements were obtained acc ording to NASCET criteria. IV contrast was administered without complication. A dose lowering techni que was utilized adhering to the principles of ALARA. CT DOSE: 668.77 mGy.cm FINDINGS: CTA: Minimal atheromatous plaque the abdominal aorta. No aortic aneurysm or dissection. Mild to moderate m ixed plaque of the left external iliac artery results in less than 50% luminal narrowing. The celiac trunk, superior and inferior mesenteric arteries are widely patent. Renal arteries are also widely pa tent. No aneurysm, dissection, high-grade stenosis or proximal branch occlusion. CT ABDOMEN/PELVIS: The imaged inferior cardiac chambers are unremarkable. Dependent bibasilar linear consolidation with groundglass densities suggest atelectasis. No pneumatosis or pneumoperitoneum. The spleen, pancreas, adrenal glands, gallbladder and liver are unremarkable. Probable cyst of the caudate lobe, 9 mm. Ther e are a few right greater than left renal cysts measuring up to 3 cm on the right. No urolith or obst ructive uropathy. Prostamegaly. Mild urinary bladder wall thickening. There is no adenopathy. There is no bowel obstruction or bowel wall thickening. Colonic diverticulosis without acute divertic ulitis. Normal appendix. No ascites or mesenteric inflammation. Unremarkable soft tissues. Degenerati ve changes of the spine, pelvis and hips. IMPRESSION: 1. Unremarkable CTA of the abdomen and pelvis. 2. No acute intra-abdominal or intrapelvic abnormality. 3. No bowel obstruction or bowel wall thickening. Normal appendix. 4. Prostamegaly. ACT 112: Negative or not required by law. The above report was generated using voice recognition software. It may contain grammatical, syntax o r spelling errors. Electronically signed by: Jorje Ludwig M.D. 10/14/2020 9:43 PM
[2020-10-14 22:01] LABS: Partial Thromboplastin Ratio 1.7; Partial Thromboplastin Time 43.8 Seconds (21.0-31.0)
[2020-10-14] MEDS: MoRPHine SULFATE 2 MG/ML CARP IV PRN (23:38)
[2020-10-14] MEDS ORDERED: hydrALAZINE HCL 25 MG TAB PO ONE (23:45)
[2020-10-15] MEDS: hydrALAZINE HCL 20 MG/ML VIAL IV PRN ×3 (01:12→21:35)
[2020-10-15] MEDS ORDERED: hydrALAZINE HCL 25 MG TAB PO STA (03:06)
[2020-10-15] MEDS: NITROGLYCERIN 2% OINTMENT 30GM TUBE EXT SCH ×4 (03:31→21:36)
[2020-10-15 04:23] LABS: Basophils # (auto) 0.01 K/uL (0-0.2); Basophils % (auto) 0.1 %; Eosinophils # (auto) 0.12 K/uL (0-0.5); Eosinophils % (auto) 1.3 %; Hemoglobin 14.5 g/dL (14.0-18.0); Immature Granulocytes # (auto) 0.02 K/uL (0.00-0.02); Immature Granulocytes % (auto) 0.2 %; Lymphocytes # (auto) 1.51 K/uL (1.2-3.4); Lymphocytes % (auto) 15.7 %; Mean Corpuscular Hemoglobin 29.2 pg (25-34); Mean Corpuscular Hgb Conc 34.5 g/dL (32-36); Mean Corpuscular Volume 84.7 fL (80-100); Mean Platelet Volume 9.9 fL (7.4-10.4); Monocytes # (auto) 0.87 K/uL (0.11-0.59); Monocytes % (auto) 9.1 %; Neutrophils # (auto) 7.07 K/uL (1.4-6.5); Neutrophils % (auto) 73.6 %; Platelet Count 267 K/uL (130-400); RDW Coefficient of Variation 13.5 % (11.5-14.5); Red Blood Count 4.96 M/uL (4.7-6.1)
[2020-10-15 04:43] LABS: Partial Thromboplastin Ratio 2.6
[2020-10-15 04:48] LABS: BUN Creatinine Ratio 8.3 (10-20); Calcium 8.4 mg/dl (8.5-10.1); Creatinine Clr Calc Pharmacy 78.9 ml/min; Est GFR (African American) 77.5; Est GFR (Non-African American) 66.9; Magnesium 2.4 mg/dl (1.8-2.4); Potassium 3.5 mmol/L (3.5-5.1)
[2020-10-15 04:55] LABS: Troponin I 8.55 ng/ml (0-0.045)
[2020-10-15] MEDS ORDERED: VALSARTAN 80 MG TAB PO STA (05:06)
[2020-10-15 05:10] LABS: Partial Thromboplastin Time 67.8 Seconds (21.0-31.0)
[2020-10-15] MEDS: HEPARIN SODIUM/DEXTROSE 25,000 UNITS/500 ML BAG IV SCH ×4 (05:25→23:45)
[2020-10-15] MEDS: MoRPHine SULFATE 2 MG/ML CARP IV PRN ×2 (05:27→20:14)
[2020-10-15] MEDS ORDERED: CLOPIDOGREL BISULFATE 300 MG TAB PO STA ×2 (08:07→10:58)
[2020-10-15] MEDS: VALSARTAN 80 MG TAB PO SCH ×2 (08:32→20:09)
[2020-10-15] MEDS ORDERED: niCARdipine HCL INJ 2.5 MG/ML 10 ML AMP ONE (08:37)
[2020-10-15] MEDS ORDERED: HEPARIN (PORCINE) 1000 UNIT/ML 10 ML (CATH LAB USE ONLY) ONE ×2 (08:37→09:31)
[2020-10-15] MEDS ORDERED: NITROGLYCERIN/D5W 100MCG/ML 20ML SYR ONE (08:38)
[2020-10-15] MEDS ORDERED: fentaNYL citrate 100 MCG/2 ML VIAL ONE (08:38)
[2020-10-15] MEDS ORDERED: MIDAZOLAM HCL 1 MG/ML 2ML VIAL ONE (08:38)
[2020-10-15] MEDS ORDERED: ATROPINE SULFATE 0.1 MG/ML 10ML SYR IV ONE (08:39)
[2020-10-15] MEDS ORDERED: ASPIRIN 81 MG ECTAB PO ONE (08:45)
[2020-10-15] MEDS ORDERED: ISOSORBIDE MONO EXTENDED REL 60 MG TABCR PO ONE (08:45)
[2020-10-15] MEDS ORDERED: hydrALAZINE TAB 50 MG TAB PO ONE (08:45)
[2020-10-15] MEDS ORDERED: Nursing to Pharmacy Communication SCH (08:45)
[2020-10-15] MEDS ORDERED: hydrALAZINE HCL 25 MG TAB PO SCH (09:00)
[2020-10-15] MEDS ORDERED: PHENYLEPHRINE HCL INJ 10 MG/ML VIAL (CATH LAB USE ONLY) ONE (09:47)
--- NOTE | 2020-10-15 10:07 | Pre Anesthesia Assessment ---
Date of Service October 15, 2020 Pre Sedation Assessment Vital Signs Temp Pulse Resp BP BP Pulse Ox 10/15/20 07:23 36.4 C L 76 18 193/95 H 95 10/15/20 04:52 179/88 H 10/15/20 03:35 36.8 C 77 22 189/87 H 93 10/15/20 01:58 89 177/70 H 10/15/20 01:10 70 179/85 H 93 10/14/20 23:21 36.7 C 72 17 192/91 H 96 10/14/20 21:36 72 18 203/97 H 96 10/14/20 20:36 86 18 174/99 H 91 10/14/20 20:26 92 H 20 151/74 H 94 10/14/20 20:21 82 20 197/105 H 90 10/14/20 20:14 36.8 C 84 22 214/109 H 94 10/14/20 15:40 68 173/84 H 10/14/20 15:37 71 179/86 H 10/14/20 15:32 82 225/98 H 10/14/20 15:11 36.7 C 69 18 194/90 H 94 10/14/20 11:57 36.7 C 53 L 17 128/72 94 Cardiovascular RRR, no murmur, no edema Respiratory normal respiratory effort, lungs clear to auscultation Pre-Sedation Airway Assessment Smoking Status: Unknown if ever smoked Hx Sleep Apnea: No Hx Difficult Intubation: No Short, Thick Neck: Yes Oral Cavity: + Dental Abnormalities Mallampati Class: II ASA: ASA3 Procedure Planning Contraindications for Sedation: none Current Medications Reviewed: Yes Notes The planned sedation has been discussed with the patient. Informed Consent was obtained. I have identified the patient, determined the appropriateness of sedation and have assessed the patient immediately prior to the procedure. All medicine(s) and interventions are by my order.
--- NOTE | 2020-10-15 10:11 | CT Scan Report ---
CT SCAN OF THE BRAIN WITHOUT IV CONTRAST CLINICAL HISTORY: Right-sided numbness. COMPARISON STUDY: CT of the brain dated 07/06/2011. TECHNIQUE: Unenhanced axial CT scan of the brain is performed from the vertex to the skull base. A do se lowering technique was utilized adhering to the principles of ALARA. There is residual IV contrast which significantly degrades assessment for hemorrhage. CT DOSE: 537.48 mGy.cm FINDINGS: Brain parenchyma: There are age-related involutional changes noting [id number] patchy subcorti amber and periventricular microangiopathic change. There is no evidence of hemorrhage or evidence of ac [place] territorial ischemia by CT criteria. Flores-white matter differentiation is preserved. No extra-axi al fluid collection is seen. Ventricles, sulci, cisterns: Prominent secondary to involutional change. Intracranial vasculature: There is atherosclerotic calcification of the cavernous carotid arteries. T he intracranial vessels at the skull base are opacified by contrast and patent as imaged. Calvarium: Unremarkable. Sinuses and mastoids: There is mild mucosal thickening in the left maxillary antrum. The remaining vi sualized paranasal sinuses are clear. The mastoid air cells are well pneumatized. Orbits: There is chronic posttraumatic deformity of the right lamina papyracea. The bony orbits are o therwise grossly intact. IMPRESSION: 1. There is no evidence of hemorrhage, mass effect, or acute territorial ischemia. 2. Evaluate for hemorrhage is degraded by residual IV contrast throughout the intracranial circulatio n. ACT 112: Negative or not required by law. Electronically signed by: Leroy Oliveros M.D. 10/15/2020 10:09 AM
--- NOTE | 2020-10-15 10:26 | Cardiac Catheterization ---
Cardiac Cath Procedure Full Procedure Date October 15, 2020 Pre-Procedure Diagnosis Pre-Procedure Diagnosis: Non STEMI AUC Score AUC Score: 07 Post-Procedure Diagnosis Post-Procedure Diagnosis: Severe CAD Procedure(s) Performed Procedure(s) Performed: Coronary Angiography Core Mounter David Cooper MD Estimated Blood Loss Estimated Blood Loss: 20ml Medication(s) Medication(s): Aspirin, Fentanyl, Heparin, Shady-Synephrine, Nicardipine, Nitroglycerin and Versed Summary of Findings LMT:lg, no disease LAD:lg TA. p-mild, m-mild, d-mild D1, med-lg branching. mli LCx:lg, non-dom.p-ok, after OM a large atrial branch arises. m-diffuse mild <30%. d-mild OM1: lg, branching, arises early from AV groove. MLI, OM2: medium. diffuse mild. PLB1: medium, branching with mild disease. PLB2 small. RCA:very large and dominant. p-diffuse mild disease and ectasia with focal 40% stenosis followed by severe 90% stenosis. m-tortuous with diffuse mild disease. d-diffuse mild disease. PDA-multibranching with proximal 50-70%. PLB small. Patient was prepped for PCI to RCA from radial approach. ACT checked and 7,000 units IV heparin provided. Initially tried a 6F JR4 guide but could not get adequate engagement to pass BMW guide wire distally. A 6F 3DRC guide catheter was substituted for the 6F JR4 guide catheter. This also did not give adequate backup for guidewire passage. His SBP was noted to be >195 mm Hg by invasive monitoring. He was given IA NTG and nicardipine. We decided to abandon radial approach and re-access via femoral artery. However, patient complained of L sided numbness and weakness. Therefore, the procedure was discontinued for possible CVA. Radial sheath removed and hemostasis was obtained using TR band. A STAT CT head was ordered and a "Stroke Alert" was called per protocol. Patient remained stable. This ended the case. Hemodynamics Rest Ao:: 125/74 mm Hg, mean 97 mm Hg Final Ao: 103/57 mm Hg, mean 73 mm Hg LV: not performed Recommendations Recommendations: PCI without planned CABG and Management Recommendatons (exclude CVA. Return for femoral access PCI of RCA as indicated.) Specimens Specimens: None Radiation Exposure (mGy) 2237 Contrast (mls) 125 Procedural Complication(s) possible CVA, under assessment. Disposition ICU I attest to the content of the Intraoperative Record and any orders documented therein. Any exceptions are noted below. 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 Cardiac Status Clinical evaluation leading to the procedure CAD Presenation: Non STEMI Anginal Classification: CCS III Heart Failure: No Cardiogenic Shock within 24 Hours: No Cardiac Arrest within 24 Hours: No Imaging Studies Past 6 Months: No Stress Studies Past 6 Months: No STEMI OR Non-STEMI Symptom Onset Date: 10/06/20 Thrombolytics: No Coronary Anatomy Dominant: Right Left Main (% Stenosis): Normal LAD (% Stenosis): Proximal (mild), Mid and Distal D1 (% Stenosis): Normal Circumflex (% Stenosis): Proximal, Mid (mild), Distal (mild) and Normal OM1 (% Stenosis): Normal OM2 (% Stenosis): Normal L PL1 (% Stenosis): Normal L PL2 (% Stenosis): Normal RCA (% Stenosis): Proximal (tandem 40% then 90%. (culprit).) R PDA (% Stenosis): Proximal (50-70%.) Diagnostic Physicians Name: David Cooper MD Status: Emergency Closure Device Percutaneous Entry Location: Radial Closure Device: Radial Band Recommendations: PCI without planned CABG and Management Recommendatons (exclude CVA. Return for femoral access PCI of RCA as indicated.)
[2020-10-15] MEDS ORDERED: LORazepam 0.5 MG/1 ML VIAL IV STA (10:37)
[2020-10-15] MEDS ORDERED: LORazepam 2 MG/4 ML VIAL ONE (10:39)
[2020-10-15] MEDS ORDERED: NITROGLYCERIN SL 0.4 MG/TAB TAB SL PRN (10:58)
--- NOTE | 2020-10-15 11:56 | Hospitalist Progress Note ---
Date of Service October 15, 2020 Assessment & Plan (1) NSTEMI (non-ST elevated myocardial infarction): Patient had an NSTEMI, likely at ~8pm yesterday evening at the onset of his symptoms. Symptoms were ongoing overnight. - Continue ASA, heparin gtt - Continue statin 40 mg PO QHS - Hold beta-martha for bradycardia and transient 3rd degree AV block - Cardiac catheterization on 10/15 indicated 90% proximal RCA lesion - The procedure was aborted when the patient had left arm numbness. - TTE on 10/14 showed EF 60-65%, mild concentric LVH. - NPO @ midnight for planned PCI (2) Stroke: Stroke Alert called at 10am during catheterization when the patient reported left-sided numbness. - CT head showed no evidence of hemorrhage - Discussed with Dr. Warner at [facility]-stroke. Not a tPA candidate given he was on heparin gtt at the time of symptoms. Large-vessel occlusion unlikely given limited symptomatology. - Plan for MRI/MRA to avoid further contrast - Consult neurology - Continue ASA - Start Plavix - Continue high-dose statin - Optimize BP - Will get A1c and lipids in the AM (3) Bradycardia: Generally in sinus bradycardia, but had a ~10 second episode of 3rd degree AV block at 9:34am on 10/14. - Hold any AV blocking agents - Plan for EP evaluation on Friday, though this seems ischemic to me, so hopefully will resolve with stent. (4) HTN (hypertension): BP presently 190/95. - Continue Imdur, valsartan, & hydralazine - Hold chlorthalidone for pending cath - Will give hydralazine PRN, though now with neuro symptoms, don't want to adjust BP too rapidly. (5) HLD (hyperlipidemia): As above (6) Mood disorder: Calm and cooperative during my interviews. - Continue home sertraline & mirtazapine (7) DVT prophylaxis: Heparin gtt for NSTEMI. Admission and Anticipated Discharge Date Admission Date: October 13, 2020 Subjective Episode of chest pain, nausea, and vomiting overnight. He had ongoing chest pain all night, but did gradually fade overnight. Was a 3/10. EKG in the morning showed Wellen waves (to my read). 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 The procedure was aborted before putting in stent, but did find 90% proximal RCA lesion. Discussed with stroke neurologist from [place]. Not a tPA candidate due to being on heparin. Given clinical state, likely not a large-vessel occlusion. Possibly small embolic shower from cardiac catheterization. Physical Exam Constitutional: WD/WN, vitals as above Eyes: EOM intact bilaterally; no conjunctival abnormality ENMT: external ear and nose normal, oropharynx normal Neck: trachea midline, no thyromegaly normal visual inspection Respiratory: normal respiratory effort, lungs clear to auscultation no respiratory distress Cardiovascular: Rate/Rhythm: regular rate and + bradycardic Heart Sounds: normal S1 and normal S2 Vessels: no JVD Extremities: no edema Gastrointestinal (Abdomen): Inspection/Auscultation: abdomen normal to inspection; abdomen not distended Musculoskeletal: no cyanosis or clubbing, extremities motor strength 5/5 Skin: no rashes, warm and dry Neurologic: moves all extremities and awake; not confused Speech / Cognition: no expressive aphasia Motor/Sensory: no tremor and normal movement Cranial Nerves: PERRL, EOM intact bilaterally, normal hearing, no nystagmus and symmetric palate elevation Psychiatric: Orientation: alert, oriented to person and cooperative Results & Data Results & Data ([facility]) Vital Signs (Past 12 Hours) Vital Signs Temp Pulse Pulse Resp BP BP Pulse Ox 10/15/20 07:30 67 10/15/20 07:23 36.4 C L 76 18 193/95 H 95 10/15/20 04:52 179/88 H 10/15/20 03:35 36.8 C 77 22 189/87 H 93 10/15/20 01:58 89 177/70 H 10/15/20 01:10 70 179/85 H 93 10/14/20 23:21 36.7 C 72 17 192/91 H 96 PG Care Time/CCT Total # of Minutes Spent Total Time Spent with Patient: Total time spent is greater than 50% in coordination of care (as documented) at patient's floor/unit and/or counseling patient: Critical Care Time: Yes Total Critical Care Time: 65 I spent a total of 65 minutes managing this patient's critical care needs including cardiac chest pain and acute neurologic changes. This time was spent bedside with the patient, evaluating results, and discussing acute, life- threatening medical issues with specialists. This is excluding any procedures. Coding Level of Care Code 52020 Subseq Hosp Care Lvl 3 Diagnoses NSTEMI (non-ST elevated myocardial infarction) I21.4 Stroke I63.9 Bradycardia R00.1 HTN (hypertension) I10 Hypertension type: essential hypertension HLD (hyperlipidemia) E78.5 Hyperlipidemia type: unspecified Mood disorder F39 DVT prophylaxis Z29.9 Additional Codes Critical Care Time - Critical Care Time: Yes ([id number]) (1) HTN (hypertension) Hypertension type: essential hypertension Qualified Code(s): I10 - Essential (primary) hypertension (2) HLD (hyperlipidemia) Hyperlipidemia type: unspecified Qualified Code(s): E78.5 - Hyperlipidemia, unspecified
[2020-10-15] MEDS: ISOSORBIDE MONO EXTENDED REL 60 MG TABCR PO SCH (12:17)
[2020-10-15] MEDS: ASPIRIN 81 MG ECTAB PO SCH (12:17)
[2020-10-15] MEDS: LIDOCAINE 5% 1 PATCH TD SCH (12:17)
--- NOTE | 2020-10-15 12:39 | Electrocardiogram Report ---
Test Reason : Blood Pressure : / mmHG Vent. Rate : 082 BPM Atrial Rate : 082 BPM P-R Int : 196 ms QRS Dur : 108 ms QT Int : 366 ms P-R-T Axes : 032 -40 024 degrees QTc Int : 427 ms Normal sinus rhythm Left axis deviation Abnormal ECG When compared with ECG of 14-OCT-2020 09:39, No significant change was found Confirmed by Gustavo Hardy ([id number]) on 10/15/2020 12:39:03 PM Referred By: Belem BRANCH Confirmed By:Gustavo Hardy
[2020-10-15] MEDS: hydrALAZINE TAB 50 MG TAB PO SCH ×4 (12:44→20:10)
[2020-10-15] MEDS: SERTRALINE HCL 100 MG TABLET PO SCH (12:45)
[2020-10-15] MEDS: SERTRALINE HCL 50 MG TABLET PO SCH (12:45)
--- NOTE | 2020-10-15 12:46 | Electrocardiogram Report ---
Test Reason : Blood Pressure : / mmHG Vent. Rate : 062 BPM Atrial Rate : 062 BPM P-R Int : 196 ms QRS Dur : 120 ms QT Int : 488 ms P-R-T Axes : 028 -37 -47 degrees QTc Int : 495 ms Normal sinus rhythm Left axis deviation Non-specific intra-ventricular conduction delay T wave abnormality, consider inferolateral ischemia Abnormal ECG When compared with ECG of 14-OCT-2020 20:20, (unconfirmed) Inverted T waves have replaced nonspecific T wave abnormality in Inferior leads QT has lengthened Confirmed by Gustavo Hardy ([id number]) on 10/15/2020 12:46:26 PM Referred By: Belem SCI Confirmed By:Gustavo Hardy
[2020-10-15] MEDS: FAMOTIDINE 20 MG in SYRINGE 3 ML IV SCH ×2 (12:50→20:07)
--- NOTE | 2020-10-15 12:53 | Magnetic Resonance Report ---
MRI OF THE BRAIN WITHOUT IV CONTRAST CLINICAL HISTORY: Right-sided weakness status post cardiac catheterization. COMPARISON STUDY: CT of the brain dated 10/15/2020. TECHNIQUE: MRI of the brain was performed utilizing various T1 and T2-weighted sequences in the axial , sagittal, and coronal planes. IV contrast was not administered for this examination. The examinatio n is severely compromised by motion artifact. FINDINGS: Brain parenchyma: There is age-related involutional change noting moderate subcortical and periventri cular microangiopathic disease. There is no hemorrhage or mass effect. There is no restricted diffusi on to suggest acute ischemia. Flores-white matter differentiation is preserved. No extra-axial fluid co llection is seen. Small chronic lacunar infarcts are noted in the danna. The cerebellar tonsils are no rmal in configuration. Ventricles, sulci, and cisterns: Prominent secondary to involutional change. Pituitary and sella: Unremarkable. Intracranial vasculature: Normal flow voids are maintained at the skull base. Orbits: There is chronic posttraumatic deformity of the right lamina papyracea. Orbital contents are normal in appearance. Sinuses and mastoids: There is mild mucosal thickening the left maxillary antrum. The remaining paran mallika sinuses are clear. The mastoid air cells are well pneumatized. Calvarium: Unremarkable. Cervical cord: Partially visualized cervical spinal cord is normal in morphology and signal intensity . IMPRESSION: No acute intracranial abnormality is identified noting a severely motion compromised exam ination ACT 112: Negative or not required by law. Electronically signed by: Leroy Oliveros M.D. 10/15/2020 12:52 PM
--- NOTE | 2020-10-15 12:56 | Magnetic Resonance Report ---
MR ANGIOGRAM OF THE BRAIN CLINICAL HISTORY: Right-sided weakness status post cardiac catheterization. COMPARISON STUDY: MRI of the brain performed concurrently on 10/15/2020. MR angiogram of the brain monisha ed 07/06/2011. TECHNIQUE: 3-D [id number] MR angiography of the intracranial circulation is performed. 3-D tumble views are created and assessed. IV contrast was not administered for this examination. The examinati on is significant compromised by motion artifact. FINDINGS: The internal carotid arteries are widely patent bilaterally, as are the anterior and middle cerebral arteries. The vertebrobasilar system and posterior cerebral arteries are widely patent. The vertebral arteries are codominant. There is no aneurysm, high-grade stenosis, or focal vessel cutoff seen throughout the intracranial circulation. The brain parenchyma is normal as visualized. IMPRESSION: Unremarkable MR angiogram of the brain noting a motion compromised examination. ACT 112: Negative or not required by law. Electronically signed by: Leroy Oliveros M.D. 10/15/2020 12:54 PM
--- NOTE | 2020-10-15 12:59 | Magnetic Resonance Report ---
MR ANGIOGRAM OF THE NECK WITHOUT IV CONTRAST CLINICAL HISTORY: Right-sided weakness status post cardiac catheterization. COMPARISON STUDY: MR angiogram of the neck dated 07/06/2011. TECHNIQUE: Axial 2-D and axial 3-D [id number] MR angiography of the neck is performed. 3-D reform ats are created and assessed. IV contrast was not administered for this examination. All measurements were calculated based on NASCET criteria. The examination is compromised by motion artifact. FINDINGS: Visualized portions of the thoracic aorta are normal in caliber. The subclavian arteries ap pear patent bilaterally. The right common carotid artery is patent, as are the right internal and ext ernal carotid arteries. The left common carotid artery is patent, as are the left internal and kitchen worker al carotid arteries. The vertebral arteries are patent bilaterally and codominant. The visualized int racranial vessels at the skull base appear patent. IMPRESSION: Unremarkable unenhanced MR angiogram of the neck noting a motion compromised examination. ACT 112: Negative or not required by law. Electronically signed by: Leroy Oliveros M.D. 10/15/2020 12:57 PM
--- NOTE | 2020-10-15 13:31 | Cardiology Progress Note ---
Date of Service October 15, 2020 Assessment & Plan (1) NSTEMI (non-ST elevated myocardial infarction): -had a significant episode of chest discomfort last evening which persisted into this morning. -troponin increased to 8.55 this morning. -"heart alert" called by Dr. Hernandez. -cardiac catheterization revealed a 95% proximal RCA stenosis (dominant vessel). -radial approach unable to support interventional catheters. -patient developed left-sided paresthesias and weakness during femoral artery access. -procedure aborted and a stroke alert was called. -continue intravenous heparin. -not on a beta-martha due to an episode of complete heart block. -reassess need for an intervention in a.m.. (2) TIA (transient ischemic attack): -occurred during the cardiac catheterization. -fortunately, symptoms have resolved. -CT and MRI show no evidence of an acute CVA. (3) Bradycardia: -significant sinus bradycardia noted on EKG and monitor. -demonstrate 2 brief episodes of complete heart block morning of October 14. -agree with avoiding beta blockade. (4) HTN (hypertension): -borderline control on current regimen. (5) HLD (hyperlipidemia): -atorvastatin increased to 40 mg q.h.s.. Admission and Anticipated Discharge Date Admission Date: October 13, 2020 Subjective The patient is resting comfortably in bed without complaints of chest pain or left-sided paresthesias. Physical Exam Physical Exam: In general is an obese black male lying supine in bed without complaints. HEENT exam is negative. Neck is supple with full carotid upstrokes. No carotid bruits. Jugular venous pressure is flat at 90. There is no thyromegaly. Cardiovascular exam reveals a regular rhythm with a normal S1-S2. Heart sounds are distant. No obvious murmurs. Lungs are clear without rales, rhonchi or wheezes. Abdomen is obese without bruits. Extremities reveal intact radial artery pulses bilaterally. There is trace pretibial edema. Results & Data ([facility]) Vital Signs (Past 12 Hours) Vital Signs Temp Pulse Pulse Resp BP BP Pulse Ox 10/15/20 12:14 36.5 C 70 18 211/87 H 92 10/15/20 07:30 67 10/15/20 07:23 36.4 C L 76 18 193/95 H 95 10/15/20 04:52 179/88 H 10/15/20 03:35 36.8 C 77 22 189/87 H 93 10/15/20 01:58 89 177/70 H 10/15/20 01:10 70 179/85 H 93 PG Care Time/CCT Total # of Minutes Spent Total Time Spent with Patient: Total time spent is greater than 50% in c oordination of care (as documented) at patient's floor/unit and/or counseling patient: Coding Level of Care Code 65385 Subseq Hosp Care Lvl 3 Diagnoses NSTEMI (non-ST elevated myocardial infarction) I21.4 TIA (transient ischemic attack) G45.9 Bradycardia R00.1 HTN (hypertension) I10 Hypertension type: essential hypertension HLD (hyperlipidemia) E78.5 Hyperlipidemia type: unspecified (1) HTN (hypertension) Hypertension type: essential hypertension Qualified Code(s): I10 - Essential (primary) hypertension (2) HLD (hyperlipidemia) Hyperlipidemia type: unspecified Qualified Code(s): E78.5 - Hyperlipidemia, unspecified
[2020-10-15 14:06] LABS: Partial Thromboplastin Ratio 2.3
[2020-10-15 14:33] LABS: Partial Thromboplastin Time 61.5 Seconds (21.0-31.0)
[2020-10-15] MEDS: ONDANSETRON INJ 2 MG/ML 2 ML VIAL IV PRN (18:34)
[2020-10-15] MEDS ORDERED: PROMETHAZINE HCL 25 MG TAB PO ONE (19:26)
[2020-10-15] MEDS: DOCUSATE SODIUM 100 MG CAP PO SCH (20:05)
[2020-10-15] MEDS: bisacodyL 5 MG TABEC PO SCH (20:05)
[2020-10-15] MEDS: METOPROLOL TARTRATE 25 MG TAB PO SCH (20:09)
[2020-10-15] MEDS: ATORVASTATIN 40 MG TAB PO SCH (20:10)
[2020-10-15 20:31] LABS: Partial Thromboplastin Ratio 1.5; Partial Thromboplastin Time 39.4 Seconds (21.0-31.0)
[2020-10-15] MEDS: MIRTAZAPINE TAB 15 MG TAB PO SCH ×2 (21:35→21:37)
[2020-10-16] MEDS: HEPARIN SODIUM/DEXTROSE 25,000 UNITS/500 ML BAG IV SCH (02:58)
[2020-10-16] MEDS: NITROGLYCERIN 2% OINTMENT 30GM TUBE EXT SCH ×3 (02:59→18:56)
[2020-10-16] MEDS: hydrALAZINE HCL 20 MG/ML VIAL IV PRN (02:59)
[2020-10-16 03:01] LABS: Basophils # (auto) 0.01 K/uL (0-0.2); Basophils % (auto) 0.1 %; Eosinophils # (auto) 0.06 K/uL (0-0.5); Eosinophils % (auto) 0.6 %; Hematocrit (blood only) 38.8 % (42-52); Hemoglobin 13.5 g/dL (14.0-18.0); Immature Granulocytes # (auto) 0.02 K/uL (0.00-0.02); Immature Granulocytes % (auto) 0.2 %; Lymphocytes # (auto) 1.55 K/uL (1.2-3.4); Lymphocytes % (auto) 15.4 %; Mean Corpuscular Hgb Conc 34.8 g/dL (32-36); Mean Corpuscular Volume 86.2 fL (80-100); Mean Platelet Volume 10.2 fL (7.4-10.4); Monocytes # (auto) 1.26 K/uL (0.11-0.59); Monocytes % (auto) 12.5 %; Neutrophils # (auto) 7.14 K/uL (1.4-6.5); Neutrophils % (auto) 71.2 %; Platelet Count 262 K/uL (130-400); RDW Coefficient of Variation 14.1 % (11.5-14.5); RDW Standard Deviation 44.4 fL (36.4-46.3); White Blood Count 10.04 K/uL (4.8-10.8)
[2020-10-16 03:17] LABS: BUN Creatinine Ratio 11.6 (10-20); Calcium 8.1 mg/dl (8.5-10.1); Creatinine Clr Calc Pharmacy 55.1 ml/min; Est GFR (African American) 51.2; Est GFR (Non-African American) 44.1; Magnesium 2.5 mg/dl (1.8-2.4); Potassium 3.6 mmol/L (3.5-5.1)
[2020-10-16 03:25] LABS: Partial Thromboplastin Ratio 2.4
[2020-10-16 03:29] LABS: Partial Thromboplastin Time 63.2 Seconds (21.0-31.0)
--- NOTE | 2020-10-16 08:43 | Neurology Consultation ---
Date of Consultation October 16, 2020 Assessment & Plan (1) TIA (transient ischemic attack): (2) History of coronary artery disease: (3) Mood disorder: This patient had an episode of transient left upper extremity and face dysesthesias with left upper extremity weakness and increased headache during a cardiac catheterization procedure October 15. Reviewing the cardiac catheterization data, he was significantly hypertensive at the onset of the procedure and was given medication to lower his blood pressure. This resulted in significant hypotension over a short period of time and there were the transient neurologic symptoms. The catheterization procedure was discontinued, pressure was restored, and all symptoms resolved by 1-2 hours. He has had no recurrence of symptoms since. MR angiography of the head and neck were unremarkable. MRI of the brain showed no acute stroke but significant old small vessel ischemia (likely from his history of hypertension). The patient has a history of mood disorder seemingly well controlled on current medication. 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 Recommendations: 1. there is no need for clopidogrel from a neurologic standpoint. I understand the combination of clopidogrel and aspirin is for cardiac reasons. 2. I see no need for additional neurologic testing or treatment at this time. 3. please contact me if I can be of further assistance in this case. Overall, I spent a total of 90 minutes with this case including review of records, review of MRI films, direct evaluation the patient at bedside, and discussion of the case with the patient at bedside, RN at bedside, and Dr. Hernandez, including differential diagnosis and treatment options. History of Present Illness Reason for Consultation: Patient is a 60-year-old, who I was asked to see at the request of Dr. Hernandez, for neurologic consultation regarding stroke-like symptoms during cardiac catheterization October 15. Requesting Physician: Dr. Hernandez Attending Physician: Portillo Hernandez MD History of Present Illness patient has a history of coronary artery disease for at least 2 years. He has a history of hypertension and dyslipidemia. He also has a history of depression. Patient has been in the [facility] [place] [facility] [place], transferred from the [place] area, recently. patient has been getting chest pain was transferred to the hospital October 13. Cardiac catheterization was initiated approximately 902October 15. His blood pressure was elevated and he was given nicardipine and nitroglycerin. At 9:37 a.m. blood pressure was still 192/88. he was given another dose of nicardipine and nitroglycerin. At 9:39 a.m. blood pressure is 103/57. At 9:43 a.m., blood pressure was 86/52 and he complained of left-sided numbness. By 0947 blood pressure was 90/55 and he was then given phenylephrine. At 9:51 a.m. blood pressure was 160/76. Procedure was discontinued. When he became symptomatic he states that he 1st had numbness in his left shoulder which spread to his left upper extremity completely. The left face had a little bit of numbness as well. He felt that the left upper extremity was weak. Left lower extremity did not have weakness or numbness. He felt that his speech and mentation were fairly good. He had a mild throbbing headache on the top of his head when the procedure started, but this got worse when the left upper extremity symptoms started. He started feeling better after the procedure and was back to baseline by hour and a half. He had no recurrence of symptoms, and has no left-sided symptoms or headache. CT scan of the head was unremarkable. Tele stroke was performed but tPA was not given because he was already on heparin. MR angiography of the head and neck were unremarkable. MRI of the brain showed moderate old small vessel ischemic changes and no acute stroke. He was put on 75 mg clopidogrel. Total cholesterol was 170 and triglycerides were 105. this morning CBC and Chem profile were unremarkable except for an elevated BUN and creatinine. Allergies Allergy/AdvReac Type Severity Reaction Status Date / Time lisinopril AdvReac Mild Unknown Unverified 10/13/20 14:44 losartan [From Cozaar] AdvReac Mild Unknown Unverified 10/13/20 14:44 Home Medications Medication Instructions Recorded Confirmed Type aspirin [Aspir-81] 81 mg PO QAM 10/13/20 10/13/20 History atorvastatin 20 mg PO HS 10/13/20 10/13/20 History bisacodyl 10 mg PO HS 10/13/20 10/13/20 History celecoxib 100 mg PO BID PRN 10/13/20 10/13/20 History chlorthalidone 25 mg PO QAM 10/13/20 10/13/20 History docusate sodium 250 mg PO HS 10/13/20 10/13/20 History hydralazine 50 mg PO QID 10/13/20 10/13/20 History isosorbide mononitrate 60 mg PO QAM 10/13/20 10/13/20 History mirtazapine 30 mg PO HS 10/13/20 10/13/20 History sertraline 50 mg PO QAM 10/13/20 10/13/20 History sertraline 100 mg PO QAM 10/13/20 10/13/20 History valsartan 160 mg PO BID 10/13/20 10/13/20 History Patient History Medical History Angina at rest Bradycardia Constipation HLD (hyperlipidemia) HTN (hypertension) Hydrocele Mood disorder Surgical History H/O removal of cyst Family History Father COPD (chronic obstructive pulmonary disease) Coronary heart disease Mother Coronary heart disease heart attack, pacemkaer Hypertension Diabetes Myocardial infarction Brother Coronary heart disease heart attack, pacemaker Hypertension Kidney disease Dialysis Diabetes Myocardial infarction Social History (Updated 10/16/20 @ 09:02 by Riley Pulliam MD) Smoking Status: Never smoker Second Hand Exposure: No; Do You Dip or Chew Tobacco: No; Tobacco Cessation Education Requested by Patient: No Hx Alcohol Use: Yes ( heavy alcohol user ( one 5th per day) quitting in the "80s") Hx Substance Use: No Communication Ability: Effective Juvenile Officer Required: No Beliefs That Will Affect Care: None Current Living Situation: Other Current Living Situation Comment: [facility] current occupational status: previously employed 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 Other Information That Helps Us Care for You: No Feels Safe at Home: Yes Assistive Devices: Glasses Review of Systems Constitutional: no fever, no fatigue and no weakness Eyes: + problem reported ( has cataracts.); no diplopia, no eye pain and no worsening vision Ear, Nose, Mouth, Throat: no ear pain, no tinnitus, no hearing loss, no dizziness, no hoarseness and no dysphagia Respiratory: no cough and no dyspnea Cardiovascular: no chest pain, no palpitations and no lightheadedness Gastrointestinal: no abdominal pain, no nausea and no vomiting Genitourinary: no dysuria and no urinary incontinence Musculoskeletal: no back pain, no neck pain, no radicular pain, no joint pain and no myalgia Integumentary: no rash and no lesions Neurologic: no gait abnormality, no localized weakness, no generalized weakness, no tingling, no numbness, no tremor(s), no abnormal movements, no headache(s), no abnormal speech, no confusion and no memory loss Psychiatric: no depression, no irritability, no anxiety, no difficulty concentrating, no confusion and no hallucinations Endocrine: no fatigue and no flushing Hematologic / Lymphatic: no easy bleeding and no easy bruising Allergy / Immunological: no urticaria and no problem reported Exam (Neuro) Physical Exam: The patient is right-handed. The patient is awake, alert, and attentive. Speech is normal without any aphasia or dysarthria. he can name objects, repeat phrases, and has normal spontaneous speech. Mentation and thought processes are intact, with orientation to person, place and time, and normal fund of knowledge. Attention and concentration are normal. Mood and affect are normal and appropriate. General appearance and grooming are normal. Short and long-term memory are intact. Extraocular eye muscles are intact without nystagmus. Visual acuity and visual shannon seem normal grossly to confrontation. There are no deficits to sensation in the face in all 3 distributions of the fifth cranial nerve bilaterally. Corneal reflexes are positive bilaterally. Facial strength and symmetry was normal bilaterally. Hearing seems normal to whisper and finger rub bilaterally. Palate moves well without asymmetry. There is normal sternocleidomastoid and trapezius (shoulder shrug) strength bilaterally. Tongue is midline with good strength bilaterally. Patient has synkinesis noted on the right with smile or eye blinking. Neck has a full range of motion without discomfort. There are no cervical bruits bilaterally. There are no cranial or ocular bruits. Heart is without murmur. There is a regular rhythm and rate. Cervical, thoracic, and lumbar spine are nontender to palpation. Gait was not tested but stance sitting up in bed is normal. With outstretched arms there is no drift. There are no resting, postural, or action tremors. There is no ataxia with finger to nose testing. There is good facility in the hands. No other abnormal involuntary movements are noted. Motor strength is 5/5 diffusely in the arms bilaterally including deltoids, biceps, triceps, brachioradialis, wrist flexors and extensors, chief crna, and intrinsic hand muscles. Motor strength is 5/5 diffusely in the legs bilaterally including hip flexors, quadriceps, hamstrings, gastrocnemius, tibialis anterior, tibialis posterior, and Peroneii muscles. Toe extensors are normal and there is good bulk in the extensor digitorum brevis muscles bilaterally. The limbs have good tone without rigidity or spasticity. There is no atrophy noted in the muscles. Muscle bulk is normal, there is no tenderness to palpation, no myotonia to percussion, and no fasciculations seen. Sensory examination is intact to touch and pin throughout all 4 limbs diffusely. Reflexes are 1/4 in the biceps, triceps, brachioradialis, quadriceps, and Achilles tendons bilaterally. There is no clonus bilaterally. Toes are downgoing with plantar stimulation bilaterally. Peripheral pulses are present and of normal quality distally in all 4 limbs. There is no peripheral edema noted in the limbs. Results & Data ([facility]) Vital Signs (Past 12 Hours) Vital Signs Temp Pulse Pulse Resp BP Pulse Ox 10/16/20 08:11 60 10/16/20 08:06 36.7 C 59 L 19 166/69 H 96 10/16/20 04:30 55 L 149/64 H 10/16/20 02:45 36.9 C 62 20 169/65 H 97 10/15/20 23:33 37.2 C 81 16 132/71 97 10/15/20 21:30 79 180/78 H PG Care Time/CCT Total # of Minutes Spent Total Time Spent with Patient: Total time spent is greater than 50% in coordination of care (as documented) at patient's floor/unit and/or counseling patient: Coding Level of Care Code 51043 Inpt Consult Level 5 Diagnoses TIA (transient ischemic attack) G45.9 History of coronary artery disease Z86.79 Mood disorder F39 Time Spent (min) 90
[2020-10-16] MEDS: METOPROLOL TARTRATE 25 MG TAB PO SCH ×2 (09:42→19:55)
[2020-10-16] MEDS: hydrALAZINE TAB 50 MG TAB PO SCH ×4 (09:42→19:55)
[2020-10-16] MEDS: VALSARTAN 80 MG TAB PO SCH ×2 (09:43→19:55)
[2020-10-16] MEDS: CLOPIDOGREL BISULFATE 75 MG TAB PO SCH (09:44)
[2020-10-16] MEDS: LIDOCAINE 5% 1 PATCH TD SCH (09:46)
--- NOTE | 2020-10-16 09:50 | Cardiology Progress Note ---
Date of Service October 16, 2020 Assessment & Plan (1) NSTEMI (non-ST elevated myocardial infarction): -fortunately, the patient's chest discomfort has resolved. -the case was discussed with Dr. Block. -will proceed with an RCA PCI later today. (2) TIA (transient ischemic attack): -occurred during the cardiac catheterization. -fortunately, symptoms have resolved. -CT and MRI show no evidence of an acute event. -Dr. Pulliam feels this may have been related to hypotension during the procedure. (3) Bradycardia: -significant sinus bradycardia noted on EKG and monitor. -demonstrate 2 brief episodes of complete heart block morning of October 14. -agree with avoiding beta blockade. (4) HTN (hypertension): -borderline control on current regimen. (5) HLD (hyperlipidemia): -atorvastatin increased to 40 mg q.h.s.. Admission and Anticipated Discharge Date Admission Date: October 13, 2020 Subjective The patient is resting comfortably in bed without complaints of chest pain or dyspnea. Neurologic complaints have completely resolved. He is willing to proceed with a coronary intervention later today. Physical Exam Physical Exam: In general is an obese black male lying supine in bed without complaints. HEENT exam is negative. Neck is supple with full carotid upstrokes. No carotid bruits. Jugular venous pressure is flat at 90. There is no thyromegaly. Cardiovascular exam reveals a regular rhythm with a normal S1-S2. Heart sounds are distant. No obvious murmurs. Lungs are clear without rales, rhonchi or wheezes. Abdomen is obese without bruits. Extremities reveal intact radial artery pulses bilaterally. There is trace pretibial edema. 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 PG Care Time/CCT Total # of Minutes Spent Total Time Spent with Patient: Total time spent is greater than 50% in coordination of care (as documented) at patient's floor/unit and/or counseling patient: Coding Level of Care Code 32205 Subseq Hosp Care Lvl 3 Diagnoses NSTEMI (non-ST elevated myocardial infarction) I21.4 TIA (transient ischemic attack) G45.9 Bradycardia R00.1 HTN (hypertension) I10 Hypertension type: essential hypertension HLD (hyperlipidemia) E78.5 Hyperlipidemia type: unspecified (1) HLD (hyperlipidemia) Hyperlipidemia type: unspecified Qualified Code(s): E78.5 - Hyperlipidemia, unspecified (2) HTN (hypertension) Hypertension type: essential hypertension Qualified Code(s): I10 - Essential (primary) hypertension
[2020-10-16] MEDS: SERTRALINE HCL 50 MG TABLET PO SCH (10:27)
[2020-10-16] MEDS: SERTRALINE HCL 100 MG TABLET PO SCH (10:27)
[2020-10-16] MEDS: ASPIRIN 81 MG ECTAB PO SCH (10:28)
[2020-10-16] MEDS: FAMOTIDINE 20 MG in SYRINGE 3 ML IV SCH ×2 (10:28→19:55)
[2020-10-16] MEDS: ISOSORBIDE MONO EXTENDED REL 60 MG TABCR PO SCH (10:28)
--- NOTE | 2020-10-16 11:49 | Hospitalist Progress Note ---
Date of Service October 16, 2020 Assessment & Plan (1) NSTEMI (non-ST elevated myocardial infarction): Patient had an NSTEMI, likely at ~8pm yesterday evening at the onset of his symptoms. Symptoms were ongoing overnight. - Continue ASA, Plavix, heparin gtt - Continue statin 80 mg PO QHS - Initiated low-dose beta-martha - Cardiac catheterization on 10/15 indicated 90% proximal RCA lesion - The procedure was aborted when the patient had left arm numbness. - TTE on 10/14 showed EF 60-65%, mild concentric LVH. - NPO @ midnight for planned PCI today. Discussed with Dr. Block. (2) JOEL (acute kidney injury): Baseline Cr ~1.2. - Cr up to 1.65 on 10/16, likely from contrast and BP changes during catheterization. - Will discuss with Dr. Block if this impacts catheterization. - Already received IV fluids, so not sure of the benefit of further at this time. (3) Stroke: Stroke Alert called at 10am during catheterization when the patient reported left-sided numbness. - CT head showed no evidence of hemorrhage - MRI/MRA brain/neck showed no stroke and no major stenoses - Consult neurology -> [place] this was likely to be due to large BP swings during the procedure. - Will get A1c in the AM (4) Bradycardia: Generally in sinus bradycardia, but had a ~10 second episode of 3rd degree AV block at 9:34am on 10/14. - Discussed with EP on 10/16 -> Likely ischemic in nature. Will monitor after PCI and if no further episodes, likely isch (5) HTN (hypertension): BP presently 170/65. - Continue Imdur, valsartan, & hydralazine - Hold chlorthalidone for pending cath - Will give hydralazine PRN. (6) HLD (hyperlipidemia): As above (7) Mood disorder: Calm and cooperative during my interviews. - Continue home sertraline & mirtazapine (8) DVT prophylaxis: Heparin gtt for NSTEMI. Admission and Anticipated Discharge Date Admission Date: October 13, 2020 Subjective Doing well today. No chest pain. Reports no fevers/chills, chest pain, shortness of breath, abdominal pain, nausea, or vomiting. Physical Exam Constitutional: WD/WN, vitals as above Eyes: EOM intact bilaterally; no conjunctival abnormality ENMT: external ear and nose normal, oropharynx normal Neck: trachea midline, no thyromegaly normal visual inspection Respiratory: normal respiratory effort, lungs clear to auscultation no respiratory distress Cardiovascular: Rate/Rhythm: regular rate and + bradycardic Heart Sounds: normal S1 and normal S2 Vessels: no JVD Extremities: no edema Gastrointestinal (Abdomen): Inspection/Auscultation: abdomen normal to inspection; abdomen not distended Musculoskeletal: no cyanosis or clubbing, extremities motor strength 5/5 Skin: no rashes, warm and dry Neurologic: moves all extremities and awake; not confused Speech / Cognition: no expressive aphasia Motor/Sensory: no tremor and normal movement Cranial Nerves: PERRL, EOM intact bilaterally, normal hearing, no nystagmus and symmetric palate elevation Psychiatric: Orientation: alert, oriented to person and cooperative Results & Data Results & Data ([facility]) Vital Signs (Past 12 Hours) Vital Signs Temp Pulse Pulse Resp BP Pulse Ox 10/16/20 08:11 60 10/16/20 08:06 36.7 C 59 L 19 166/69 H 96 10/16/20 04:30 55 L 149/64 H 10/16/20 02:45 36.9 C 62 20 169/65 H 97 PG Care Time/CCT Total # of Minutes Spent Total Time Spent with Patient: Total time spent is greater than 50% in coordination of care (as documented) at patient's floor/unit and/or counseling patient: Coding Level of Care Code 85740 Subseq Hosp Care Lvl 3 Diagnoses NSTEMI (non-ST elevated myocardial infarction) I21.4 JOEL (acute kidney injury) N17.9 Stroke I63.9 Bradycardia R00.1 HTN (hypertension) I10 Hypertension type: essential hypertension HLD (hyperlipidemia) E78.5 Hyperlipidemia type: unspecified Mood disorder F39 DVT prophylaxis Z29.9 (1) HLD (hyperlipidemia) Hyperlipidemia type: unspecified Qualified Code(s): E78.5 - Hyperlipidemia, unspecified (2) HTN (hypertension) Hypertension type: essential hypertension Qualified Code(s): I10 - Essential (primary) hypertension
[2020-10-16] MEDS ORDERED: MIDAZOLAM HCL 1 MG/ML 2ML VIAL ONE (15:39)
[2020-10-16] MEDS ORDERED: fentaNYL citrate 100 MCG/2 ML VIAL ONE (15:40)
[2020-10-16] MEDS ORDERED: HEPARIN (PORCINE) 1000 UNIT/ML 10 ML (CATH LAB USE ONLY) ONE (15:40)
[2020-10-16] MEDS ORDERED: niCARdipine HCL INJ 2.5 MG/ML 10 ML AMP ONE (15:40)
[2020-10-16] MEDS ORDERED: NITROGLYCERIN/D5W 100MCG/ML 20ML SYR ONE (15:40)
[2020-10-16] MEDS ORDERED: CLOPIDOGREL BISULFATE 300 MG TAB ONE (17:05)
--- NOTE | 2020-10-16 17:24 | Post Anesthesia Assessment ---
Date of Service October 16, 2020 Post Sedation Assessment Vital Signs Temp Pulse Pulse Resp BP Pulse Ox 10/16/20 15:44 98.8 F 67 19 171/63 H 96 10/16/20 11:48 98.8 F 56 L 22 171/66 H 93 10/16/20 08:11 60 10/16/20 08:06 98.1 F 59 L 19 166/69 H 96 10/16/20 04:30 55 L 149/64 H 10/16/20 02:45 98.4 F 62 20 169/65 H 97 10/15/20 23:33 99.0 F 81 16 132/71 97 10/15/20 21:30 79 180/78 H 10/15/20 19:29 98.1 F 84 17 173/73 H 94 Recovery Score Activity: Moves 4 extremities Respiration: Deep Breath/Cough Circulation: +/-20% PreAnes Value Consciousness: Fully Awake Oxygen Saturation: O2 needed for >90% Discharge Sedation Level of Care: Fast Track Phase II Post Sedation Plan On clinical assessment, the patient appears to have tolerated the sedation w ithout complications. Patient is recovering as anticipated. Patient will continue to be monitored by nursing and may be discharged when sedation discharge criteria are met per below protocol. Upon Completions of procedure up to 15 minutes continue every 5 minute vital signs and the P.A.R. score; then discharge to a Phase I or Fast Track to Phase II per the following guidelines: * Discharge Patient to appropriate Phase II area if PAR is 8 or greater or return to pre- procedure baseline. The post - procedure orders will be as directed. * If PAR score is less than 8 or not return to pre-procedure baseline then patient will follow Phase I monitoring till PAR is reached for Phase II. The Phase I may be done in procedure room or may call to secure a Phase I area. * If naloxone or flumazenil are used for reversal, hold in Phase I for continued monitoring from when last reversal dose was given for a minimum of 60 minutes or longer pending the nurse and/or physician discretion of patient condition before discharge to Phase II. Please call the Sedation Physician to re-evaluate and complete post-note for discharge to Phase II area. Do NOT discharge from procedure sedation or Phase 1 until post- sedation evaluation note is complete by procedure /sedation MD Sedation Discharge Instructions to be given to the patient at discharge to home.
[2020-10-16] MEDS ORDERED: SODIUM CHLORIDE 0.9% 1000ML 1,000 ML IV SCH (17:30)
--- NOTE | 2020-10-16 17:36 | Cardiac Catheterization ---
[facility] Data: Certified Welder Cardiac Status Clinical evaluation leading to the procedure CAD Presenation: Non STEMI Anginal Classification: CCS IV Heart Failure: No Cardiogenic Shock within 24 Hours: No Cardiac Arrest within 24 Hours: No Imaging Studies Past 6 Months: Yes Stress Studies Past 6 Months: No Diagnostic Physicians Name: Jesus Block MD Status: Elective Closure Device Percutaneous Entry Location: Radial Closure Device: Radial Band Recommendations: PCI without planned CABG PCI Indication: PCI for high risk Non-NOHEMY Lesion Segment Name: mid RCA Culprit Artery: Yes Stenosis Prior to Rx (%): 95 Chronic Total Occlusion: No IVUS: No FFR: No Pre-Procedure VINCENZO Flow: 3 Previously Treated Lesion: No Lesion Complexity: Non-High/Non-C Lesion Length (mm): 12 Thrombus Present: Yes Bifurcation Lesion: No Guidewire Across Lesion: Stenosis Post-Procedure (%): 0 Post-Procedure VINCENZO Flow: 3 Devices(s) Deployed: Yes Yes Intraprocedure Events Significant Disection: No Perforation: No Cardiac Cath Procedure Full Procedure Date October 16, 2020 Pre-Procedure Diagnosis Pre-Procedure Diagnosis: Non STEMI AUC Score AUC Score: 07 Post-Procedure Diagnosis Post-Procedure Diagnosis: Severe CAD and Successful PCI Procedure(s) Performed Procedure(s) Performed: Coronary Angiography and Drug Eluting Stent Spinning Frame Cleaner Jesus Block MD [employer](s) Eddie Estimated Blood Loss Estimated Blood Loss: 20ml Medication(s) Medication(s): Clopidogrel, Fentanyl, Heparin, Nicardipine, Nitroglycerin and Versed Summary of Findings Indication: High risk NSTEMI Access: 6Fr right radial artery Catheters: JR4 guide Findings: For full details of patient's coronary angiography please see cath report dictated by Dr. Cooper on 10/15/2020. Briefly, patient found to have severe single-vessel coronary artery disease involving his mid RCA. During procedure patient had transient neurologic symptoms concerning for possible CVA. Procedure stopped for additional work-up. Neuroimaging and neurology evaluation has been reassuring and patient with known residual neurologic symptoms. Decision to proceed with PCI of RCA today. -- PCI -- Antithrombotic therapy: Heparin, clopidogrel Procedure: RCA cannulated with JR4 guide Supervisor Cab 50 wire passed across lesion into distal vessel Guideliner used for support Mid RCA lesion predilated with 3.0 compliant balloon Dilated lesion stented with 4.5 x 18 mm Zafar drug-eluting stent Stent post-dilated with 5.0 noncompliant balloon IC vasodilators administered for spasm Post procedure VINCENZO 3 flow, stent well expanded with minimal residual stenosis and no apparent cardiac complications. Mild to moderate residual stenosis and proximal RCA. Arterial Closure: TR band Summary: 1. Successful PCI of mid RCA with single drug-eluting stent (4.5 x 18 mm Berry; postdilated with 5.0 NC). Recommendations: To PCU for continued monitoring Reloaded with clopidogrel 300 mg in Certified Welder Continue dual-antiplatelet therapy for at least 1 year Can discontinue heparin infusion Hemodynamics Rest Ao:: 115/60/83 Final Ao: 129/65/92 LV: -- Recommendations Recommendations: PCI without planned CABG Specimens Specimens: None Radiation Exposure (mGy) 2241 Contrast (mls) 90 Fluids (cc crystalloids) Fluids (cc crystalloids): 44 Drains Drains: Moderate 0568-1294 Anesthesia None Procedural Complication(s) None Disposition PCU I attest to the content of the Intraoperative Record and any orders documented therein. Any exceptions are noted below. [facility] Card Cath Procedure Codes Moderate Sedation Procedure 1: Sedation/Anesthesia: 09118 Mod Sedation by the same physician;Init15 Min Child Age 5 & Up Procedure 2: Sedation/Anesthesia: 35892 Mod Sedation by the same physician; Ea [id number] Minutes Stenting Procedure 1: Cardiovascular Stent Procedures: 10908 Perc transcatheter placement of in tracoronary stent(s), with ang PG Care Time/CCT Total # of Minutes Spent Total Time Spent with Patient: Total time spent is greater than 50% in coordination of care (as documented) at patient's floor/unit and/or counseling patient:
[2020-10-16] MEDS: bisacodyL 5 MG TABEC PO SCH (19:33)
[2020-10-16] MEDS: DOCUSATE SODIUM 100 MG CAP PO SCH (19:33)
[2020-10-16] MEDS: MIRTAZAPINE TAB 15 MG TAB PO SCH (19:55)
[2020-10-16] MEDS: ATORVASTATIN 40 MG TAB PO SCH (19:55)
--- NOTE | 2020-10-16 21:40 | Electrocardiogram Report ---
Test Reason : Blood Pressure : / mmHG Vent. Rate : 066 BPM Atrial Rate : 066 BPM P-R Int : 196 ms QRS Dur : 110 ms QT Int : 398 ms P-R-T Axes : 056 -39 -73 degrees QTc Int : 417 ms Normal sinus rhythm Left axis deviation Abnormal ECG When compared with ECG of 15-OCT-2020 07:13, No significant change Confirmed by Matthew Winn ([id number]) on 10/16/2020 9:40:06 PM Referred By: Belem BRANCH Confirmed By:Matthew Winn
[2020-10-17] MEDS ORDERED: ACETAMINOPHEN 1000 MG/100 ML IV IV ONE (03:27)
[2020-10-17] MEDS: hydrALAZINE HCL 20 MG/ML VIAL IV PRN (03:27)
[2020-10-17 06:09] LABS: Hematocrit (blood only) 39.8 % (42-52); Hemoglobin 13.5 g/dL (14.0-18.0); Mean Corpuscular Hemoglobin 29.4 pg (25-34); Mean Corpuscular Hgb Conc 33.9 g/dL (32-36); Mean Corpuscular Volume 86.7 fL (80-100); Mean Platelet Volume 10.2 fL (7.4-10.4); Platelet Count 237 K/uL (130-400); RDW Coefficient of Variation 13.5 % (11.5-14.5); RDW Standard Deviation 42.8 fL (36.4-46.3); Red Blood Count 4.59 M/uL (4.7-6.1); White Blood Count 9.24 K/uL (4.8-10.8)
[2020-10-17 06:20] LABS: Partial Thromboplastin Time 25.6 Seconds (21.0-31.0)
[2020-10-17 06:44] LABS: BUN Creatinine Ratio 15.8 (10-20); Calcium 8.2 mg/dl (8.5-10.1); Creatinine Clr Calc Pharmacy 73.8 ml/min; Est GFR (African American) 72.3; Est GFR (Non-African American) 62.4; Magnesium 2.9 mg/dl (1.8-2.4); Potassium 3.5 mmol/L (3.5-5.1)
--- NOTE | 2020-10-17 08:11 | Neurology Progress Note ---
Date of Service October 17, 2020 Assessment & Plan (1) TIA (transient ischemic attack): (2) History of coronary artery disease: (3) Mood disorder: This patient had an episode of transient left upper extremity and face dysesthesias with left upper extremity weakness and increased headache during a cardiac catheterization procedure October 15. Reviewing the cardiac catheterization data, he was significantly hypertensive at the onset of the procedure and was given medication to lower his blood pressure. This resulted in significant hypotension over a short period of time and there were the transient neurologic symptoms. The catheterization procedure was discontinued, pressure was restored, and all symptoms resolved by 1-2 hours. He has had no recurrence of symptoms since. Yesterday, he underwent cardiac catheterization again successfully without any neurologic symptoms. MR angiography of the head and neck were unremarkable. MRI of the brain showed no acute stroke but significant old small vessel ischemia (likely from his history of hypertension). His blood pressure is controlled. The patient has a history of mood disorder seemingly well controlled on current medication. 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 Recommendations: 1. there is no need for clopidogrel from a neurologic standpoint. I understand the combination of clopidogrel and aspirin is for cardiac reasons. 2. I see no need for additional neurologic testing or treatment at this time. 3. control blood pressure as you are doing, aiming for a mean arterial pressure of approximately 100. Overall, I spent a total of 25 minutes with this case including review of records, direct evaluation the patient at bedside, and discussion of the case with the patient at bedside and Dr. Hernandez, including differential diagnosis and treatment options. Admission and Anticipated Discharge Date Admission Date: October 13, 2020 Subjective Patient does not have any complaints of weakness or numbness today. Yesterday afternoon, he underwent a successful cardiac catheterization involving dilation and stenting of the right coronary artery. He did not have any symptoms neurologically during the catheterization procedure yesterday. Blood pressure today is 195/80. CBC and Chem profile were largely his calcium is low Results & Data ([facility]) Vital Signs (Past 12 Hours) Vital Signs Temp Pulse Resp BP Pulse Ox 10/17/20 07:53 36.9 C 59 L 17 196/85 H 91 10/17/20 04:36 186/89 H 10/17/20 03:15 201/97 H 10/17/20 03:00 36.8 C 56 L 19 227/103 H 91 10/16/20 23:08 37.1 C 62 16 155/76 H 91 Exam (Neuro) Physical Exam: he is weak and alert. Speech is without aphasia or dysarth michael. Mood is unremarkable and he is pleasant conversation. There is no facial droop. Muscles are intact nystagmus synkinesis on the right as. Coordination is normal in the arms strength seems symmetrical PG Care Time/CCT Total # of Minutes Spent Total Time Spent with Patient: Total time spent is greater than 50% in coordination of care (as documented) at patient's floor/unit and/or counseling patient: Coding Level of Care Code 39579 Subseq Hosp Care Lvl 2 Diagnoses TIA (transient ischemic attack) G45.9 History of coronary artery disease Z86.79 Mood disorder F39
[2020-10-17] MEDS: METOPROLOL TARTRATE 25 MG TAB PO SCH ×2 (08:56→10:05)
[2020-10-17] MEDS: CLOPIDOGREL BISULFATE 75 MG TAB PO SCH (08:56)
[2020-10-17] MEDS: VALSARTAN 80 MG TAB PO SCH (08:57)
[2020-10-17] MEDS: hydrALAZINE TAB 50 MG TAB PO SCH ×2 (08:57→13:06)
[2020-10-17] MEDS: LIDOCAINE 5% 1 PATCH TD SCH (09:27)
[2020-10-17] MEDS: FAMOTIDINE 20 MG in SYRINGE 3 ML IV SCH (09:27)
[2020-10-17] MEDS: ASPIRIN 81 MG ECTAB PO SCH (09:28)
[2020-10-17] MEDS: SERTRALINE HCL 100 MG TABLET PO SCH (09:28)
[2020-10-17] MEDS: ISOSORBIDE MONO EXTENDED REL 60 MG TABCR PO SCH (09:28)
[2020-10-17] MEDS: SERTRALINE HCL 50 MG TABLET PO SCH (09:29)
[2020-10-17] MEDS: NITROGLYCERIN SL 0.4 MG/TAB TAB SL PRN (13:07)
[2020-10-17] MEDS ORDERED: ALUMINUM/MAGNESIUM/SIMETH (MAALOX MAX) 30 ML UDC PO STA (14:04)
[2020-10-17] MEDS: ONDANSETRON INJ 2 MG/ML 2 ML VIAL IV PRN (14:23)
--- NOTE | 2020-10-17 17:35 | Discharge Summary ---
Date of Service October 17, 2020 Principal Diagnosis NSTEMI Discharge Exam Constitutional WD/WN, vitals as above Eyes EOM intact bilaterally; no conjunctival abnormality ENMT external ear and nose normal, oropharynx normal Neck trachea midline, no thyromegaly normal visual inspection Respiratory normal respiratory effort, lungs clear to auscultation no respiratory distress Cardiovascular Rate/Rhythm: regular rate and + bradycardic Heart Sounds: normal S1 and normal S2 Vessels: no JVD Extremities: no edema Gastrointestinal (Abdomen) Inspection/Auscultation: abdomen normal to inspection; abdomen not distended Musculoskeletal no cyanosis or clubbing, extremities motor strength 5/5 Skin no rashes, warm and dry Neurologic moves all extremities and awake; not confused Speech / Cognition: no expressive aphasia Motor/Sensory: no tremor and normal movement Cranial Nerves: PERRL, EOM intact bilaterally, normal hearing, no nystagmus and symmetric palate elevation Psychiatric Orientation: alert, oriented to person and cooperative Discharge Data Allergies Allergy/AdvReac Type Severity Reaction Status Date / Time lisinopril AdvReac Mild Unknown Unverified 10/13/20 14:44 losartan [From Cozaar] AdvReac Mild Unknown Unverified 10/13/20 14:44 Consultations 10/13/20 14:14 ED Decision to Admit Stat 10/13/20 17:04 Consult Cardiology Routine 10/15/20 10:22 Consult Neurology Routine Procedures Performed Operation Date: 10/15/20 08:45 Actual Procedures s Cineradiography w/Routine Exam - David Cooper MD p Cath, Coronaries ONLY (no LV) - David Cooper MD s POBA SGL Vessel - David Cooper MD Operation Date: 10/16/20 12:00 Actual Procedures p Drug Eluting Stent SGl Vessel - Abhishek Block MD p Cath, Coronaries ONLY (no LV) - Abhishek Block MD s Cineradiography w/Routine Exam - Abhishek Block MD Ordered Studies 10/14/20 21:03 CT angio abdomen pelvis w con Stat 10/15/20 08:37 CL Cath Imgs for PACS use only Stat 10/15/20 09:44 CT head/brain wo con Stat 10/15/20 10:22 MR angio head wo con Stat MR angio neck wo con Stat MR brain wo con Stat 10/16/20 07:08 CL Cath Imgs for PACS use only Routine Hospital Course (1) NSTEMI (non-ST elevated myocardial infarction): Patient had an NSTEMI, likely at ~8pm on 10/15 at the onset of his symptoms. Symptoms were ongoing overnight that night. - Continue ASA, Plavix - Continue statin 80 mg PO QHS - Cardiac catheterization on 10/15 indicated 90% proximal RCA lesion - The procedure was aborted when the patient had left arm numbness. - TTE on 10/14 showed EF 60-65%, mild concentric LVH. - One AMI to the RCA on 10/[address] Block. Will need DAPT x 1 year. Added metoprolol to his regimen as well. - Follow up with cardiology in 2 weeks. Also started a PPI as he had some nausea and stomach pains. I do wonder if his celecoxib was causing some gastritis. This was recommended to stop on discharge given he is now on aspirin and Plavix. (2) JOEL (acute kidney injury): Baseline Cr ~1.2. - Cr up to 1.65 on 10/16, likely from contrast and BP changes during catheterization. - Down to baseline by discharge. (3) Stroke: Stroke Alert called at 10am during catheterization when the patient reported left-sided numbness. - CT head showed no evidence of hemorrhage - MRI/MRA brain/neck showed no stroke and no major stenoses. - Consult neurology -> [place] this was likely to be due to large BP swings during the procedure. (4) Bradycardia: Generally in sinus bradycardia, but had a ~10 second episode of 3rd degree AV block at 9:34am on 10/14. - Discussed with EP on 10/16 -> Likely ischemic in nature. Will monitor after PCI and if no further episodes, likely isch (5) HTN (hypertension): BP presently 170/65. - Continue Imdur, valsartan, & hydralazine - On discharge, increased Imdur to 120 mg PO QAM. Restart chlorthalidone. Also on metoprolol now which may help. (6) HLD (hyperlipidemia): As above (7) Mood disorder: Calm and cooperative during my interviews. - Continue home sertraline & mirtazapine (8) DVT prophylaxis: Heparin gtt for NSTEMI. 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 Hardy in 2 weeks.) Belem BRANCH [Primary Care Provider] - Diet: Heart Healthy Addtl Attending Provider Instructions: Mr. Huffman was admitted with chest pain. He had an NSTEMI and required a drug- eluting stent to his RCA. He had some transient left-arm numbness which we were worried was a stroke, but MRI of the brain and MRA of the head/neck were all normal. He was doing well on discharge. He will need to be on aspirin and Plavix for at least a year and should follow up with the manager landscape in 2 weeks to be sure his stent is doing well. Pending Studies at Discharge: No Stand-Alone Forms: My [facility] Skilled Items Patient informed of condition?: Yes Discharge Level of Care: Other Communicable Disease: No Discharge Prognosis: Stable Lines: None Urinary Catheter: No Medications and DC Order Prescriptions: New clopidogrel 75 mg Tablet 75 mg PO QAM Qty: 1 RF: 0 metoprolol tartrate 25 mg Tablet 12.5 mg PO BID Qty: 1 RF: 0 pantoprazole 20 mg tablet,delayed release (DR/EC) 20 mg PO DAILY Qty: 1 RF: 0 Continued sertraline 100 mg Tablet 100 mg PO QAM RF: 0 chlorthalidone 25 mg Tablet 25 mg PO QAM RF: 0 aspirin 81 mg Tablet,Delayed Release (Dr/Ec) 81 mg PO QAM RF: 0 mirtazapine 30 mg Tablet 30 mg PO HS RF: 0 hydralazine 50 mg Tablet 50 mg PO QID RF: 0 docusate sodium 250 mg Capsule 250 mg PO HS RF: 0 sertraline 50 mg Tablet 50 mg PO QAM RF: 0 valsartan 160 mg Tablet 160 mg PO BID RF: 0 bisacodyl 5 mg Tablet 10 mg PO HS RF: 0 Changed atorvastatin 20 mg Tablet 80 mg PO HS Qty: 0 RF: 0 isosorbide mononitrate 60 mg Tablet Extended Release 24 Hr 120 mg PO QAM Qty: 0 RF: 0 Discontinued celecoxib 100 mg Capsule 100 mg PO BID PRN (Reason: .) RF: 0 Discharge Orders: Discharge Order (Routine); Ordered 10/17/20 Ordered By: Portillo Hernandez Admission Data Admit Date/Time: 10/13/20 15:26 Attending Provider: Portillo Hernandez Admit Provider: Emeli Hutchinson Primary Care Provider: Belem BRANCH Other Providers: Phillip Mackay ; Portillo Hernandez ; Kole Puente Other Interventions: Discharge Summary Assessment (RN) Last Done: 10/17/20 13:42 Coding Level of Care Code D/C Day Management >30 mins Diagnoses NSTEMI (non-ST elevated myocardial infarction) I21.4 JOEL (acute kidney injury) N17.9 Stroke I63.9 Bradycardia R00.1 HTN (hypertension) I10 Hypertension type: essential hypertension HLD (hyperlipidemia) E78.5 Hyperlipidemia type: unspecified Mood disorder F39 DVT prophylaxis Z29.9
--- NOTE | 2020-10-18 06:19 | Electrocardiogram Report ---
Test Reason : Blood Pressure : / mmHG Vent. Rate : 052 BPM Atrial Rate : 052 BPM P-R Int : 182 ms QRS Dur : 110 ms QT Int : 486 ms P-R-T Axes : 031 -41 -64 degrees QTc Int : 451 ms Sinus bradycardia Left axis deviation T wave abnormality, consider inferolateral ischemia Abnormal ECG When compared with ECG of 15-OCT-2020 10:38, T wave inversion now evident in Anterior leads Confirmed by Matthew Winn ([id number]) on 10/18/2020 6:19:04 AM Referred By: Belem SCI Confirmed By:Matthew Winn
[2020-10-18] MEDS ORDERED: ISOSORBIDE MONO EXTENDED REL 60 MG TABCR PO SCH (09:00)
[2020-10-18] MEDS ORDERED: CHLORTHALIDONE 25 MG TAB PO SCH (09:00)
== END 2020-10-17 15:21 | DRG 247 ==
LOC: ED 12:47 → SUATTDRO 15:26 → 2S 15:26
PROC: CLB.CCO (2020-10-15 08:45)